=== PATIENT | female | born 1950 | race Caucasian/White ===

== ENCOUNTER 2020-01-19 15:31 | Outpatient (REF) | payer MEDICARE, SELFPAY ==
--- NOTE | 2020-01-19 | MR_ITS ---
EXAMINATION: MR LUMBAR SPINE WITHOUT CONTRAST CLINICAL INFORMATION: Low back and left leg pain. COMPARISON: MRI dated 01/25/2017. TECHNIQUE: MRI of the lumbar spine was obtained using routine sequences without contrast. FINDINGS: VERTEBRAL BODIES AND PARASPINAL STRUCTURES: There is a mild rightward curvature of the lumbar spine. There are new mild anterior subluxations at L3-L4 and L4-L5. There are small endplate Schmorl's nodes at L4-L5 with mild reactive marrow edema. No compression fractures identified. The paraspinal soft tissues are unremarkable. The imaged bony pelvis is normal. CONUS MEDULLARIS AND CAUDA EQUINA: Normal, terminating at the level of L1. No lower cord signal abnormality is seen. The cauda equina nerve roots appear normal. SPINAL LEVELS: L1-L2: No disc pathology. No central canal stenosis or foraminal narrowing. L2-L3: Very mild disc bulge and mild facet arthropathy without central canal stenosis or foraminal narrowing. L3-L4: Left paracentral to left subarticular zone disc protrusion superimposed upon a broad-based posterior disc bulge, worsened when compared to prior imaging. New mild anterolisthesis as well. Moderate facet arthropathy and mild central canal stenosis. Bulging disc mildly impresses upon the traversing L4 nerve roots. Broad-based left foraminal disc protrusion abuts but does not compress the exiting left L3 nerve root. L4-L5: Mild anterolisthesis and unroofing of the disc with a posterior disc bulge and severe facet arthropathy. Additional increased thickening of the ligamentum flavum. New large 1.4 x 0.9 x 0.4 cm synovial cyst protruding from the left facet joint through the ligamentum flavum into the central canal. This cyst results in severe thecal sac compression. Additionally, there is moderate to severe central canal stenosis. Unroofed bulging disc and facet spurring result in [id number] foraminal encroachment. Mild reactive edema in the deep posterior surrounding paraspinal soft tissues as well. L5-S1: Mild disc bulge and moderate to severe facet arthropathy without central canal stenosis or foraminal narrowing. MR/MR lumbar spine wo con IMPRESSION: New mild anterolisthesis at L3-L4 with a left paracentral to subarticular zone disc protrusion. Worsened posterior disc bulge as well impressing upon both L4 nerve roots. Broad-based left foraminal disc protrusion abutting the left L3 nerve root. Mild central canal stenosis. New mild anterior subluxation and unroofing of the disc at L4-L5 with progressed facet arthropathy and thickening of the ligamentum flavum. Findings result in moderate to severe central canal stenosis. New 1.4 x 0.9 x 0.4 cm synovial cyst protruding from the left facet joint into the canal with severe thecal sac compression.
== END 2020-01-19 15:32 | disposition home or self-care (01) ==
LOC: HO.MRI 15:31
PROVIDERS: Visit Provider Internal Medicine Rheumatology
DX: M51.26 Other intervertebral disc displacement, lumbar region (principal)
CPT/HCPCS: 72148

== ENCOUNTER 2020-10-13 11:55 | Outpatient (REF) | payer MEDICARE, SELFPAY ==
--- NOTE | ~2020-10-13 | MM_ITS ---
EXAMINATION: MM SCREENING DIGITAL BREAST TOMOSYNTHESIS, BILATERAL CLINICAL INFORMATION: Screening. Asymptomatic. The lifetime risk of breast cancer based on the Tyrer-Cuzick Model is 4%. COMPARISON: Mammography: 04/21/2019, 08/22/2017, 05/05/2016 TECHNIQUE: Digital breast tomosynthesis is performed in both the craniocaudal and mediolateral oblique views along with computer-aided detection (CAD). Synthesized 2D images are generated from the tomosynthesis. FINDINGS: The breasts are heterogeneously dense, which may obscure small masses (ACR BI-RADS breast composition Category c). There are no significant masses, abnormal calcifications, or other abnormalities. The axilla and skin contours are unremarkable. No significant changes. MM/MM tomosynthesis screening BI IMPRESSION: No mammographic evidence of malignancy. ASSESSMENT: BI-RADS 1: Negative RECOMMENDATION: Routine annual mammography screening. This patient's information was entered into a reminder system with a target due date for their next mammogram.
== END 2020-10-13 11:56 | disposition home or self-care (01) ==
LOC: HO.MAMMO 11:55
PROVIDERS: Visit Provider Student in an Organized Health Care Education/Training Program
DX: Z12.31 Encounter for screening mammogram for malignant neoplasm of breast (principal)
CPT/HCPCS: 77063; 77067

== ENCOUNTER 2021-03-22 15:14 | Outpatient (REF) | payer MEDICARE, SELFPAY ==
--- NOTE | ~2021-03-22 | XR_ITS ---
EXAMINATION: XR FOOT, LEFT CLINICAL INFORMATION: Numbness between the toes. Great toenail is black . COMPARISON: Radiograph of the left foot dated from 03/26/2011. TECHNIQUE: AP, lateral, and oblique views of the left foot. FINDINGS: No evidence of acute fractures or malalignment. Enthesophytes in the posterior surface of the calcaneus. No suspicious cortical disruption or erosions to suspect osteomyelitis. No unexpected radiopaque foreign bodies. There is diffuse soft tissue edema with scattered vascular calcifications. XR/XR foot LT min 3V IMPRESSION: No acute fractures or malalignment. No suspicious findings for osteomyelitis. However, early osteomyelitis is often radiographically occult and if there is concern for infection further evaluation could be obtained with an MR of the foot if indicated.
== END 2021-03-22 15:15 | disposition home or self-care (01) ==
LOC: HO.XRAY 15:14
PROVIDERS: PCP Internal Medicine Endocrinology, Diabetes & Metabolism; Visit Provider Internal Medicine Endocrinology, Diabetes & Metabolism
DX: R20.0 Anesthesia of skin (principal)
CPT/HCPCS: 73630

== ENCOUNTER 2021-05-31 12:25 | Outpatient (REF) | payer MEDICARE, SELFPAY ==
--- NOTE | ~2021-05-31 | XR_ITS ---
EXAMINATION: XR cervical spine 4V CLINICAL INFORMATION: Pain COMPARISON: None TECHNIQUE: 6 views of the cervical spine were obtained. XR/XR cervical spine 4V FINDINGS/IMPRESSION: The cervical spine is visualized to the level of C7 on the lateral view. Vertebral body alignment is maintained. Vertebral body heights are maintained. Lateral masses of C1 are well aligned on C2. Visualized portion of the dens is intact. Moderate degenerative disc disease at C4-C5 through C6-C7, manifested by loss of disc space height and facet arthropathy. Uncovertebral hypertrophy and facet arthropathy results in moderate to severe neural foraminal narrowing on the right at C4-C5 through C6-C7 and in moderate neural foraminal narrowing on the left at C3-C4, C4-C5, and C6-C7. No prevertebral soft tissue swelling.
== END 2021-05-31 12:26 | disposition home or self-care (01) ==
LOC: HO.XRAY 12:25
PROVIDERS: PCP Internal Medicine Endocrinology, Diabetes & Metabolism; Visit Provider Psychiatry & Neurology Neurology
DX: M50.90 Cervical disc disorder, unspecified, unspecified cervical region (principal)
CPT/HCPCS: 72050

== ENCOUNTER 2021-10-24 10:53 | Outpatient (REF) | payer MEDICARE, SELFPAY ==
--- NOTE | ~2021-10-24 | MM_ITS ---
EXAMINATION: MM SCREENING DIGITAL BREAST TOMOSYNTHESIS, BILATERAL CLINICAL INFORMATION: Screening. Asymptomatic. The lifetime risk of breast cancer based on the Tyrer-Cuzick Model is 4%. COMPARISON: Mammography: 10/13/2020, 04/21/2019, 08/22/2017 TECHNIQUE: Digital breast tomosynthesis is performed in both the craniocaudal and mediolateral oblique views along with computer-aided detection (CAD). Synthesized 2D images are generated from the tomosynthesis. FINDINGS: The breasts are heterogeneously dense, which may obscure small masses (ACR BI-RADS breast composition Category c). There are no significant masses, abnormal calcifications, or other abnormalities. Breast tissue composition borders on average fibroglandular. Parenchymal pattern is similar to prior studies. The axilla and skin contours are unremarkable. MM/MM tomosynthesis screening BI IMPRESSION: No mammographic evidence of malignancy. ASSESSMENT: BI-RADS 1: Negative RECOMMENDATION: Routine annual mammography screening. This patient's information was entered into a reminder system with a target due date for their next mammogram.
== END 2021-10-24 10:54 | disposition home or self-care (01) ==
LOC: HO.MAMMO 10:53
PROVIDERS: PCP Student in an Organized Health Care Education/Training Program; Visit Provider Student in an Organized Health Care Education/Training Program
DX: Z12.31 Encounter for screening mammogram for malignant neoplasm of breast (principal)
CPT/HCPCS: 77063; 77067

== ENCOUNTER 2021-12-07 10:59 | Outpatient (REF) | payer MEDICARE, SELFPAY ==
--- NOTE | ~2021-12-07 | MM_ITS ---
EXAMINATION: BONE DENSITOMETRY CLINICAL INDICATION: Age-related osteoporosis without current pathological fracture. COMPARISON: Previous BD dated 10/23/2019 and baseline BD dated 06/03/2015. TECHNIQUE: Using a [employer] DXA System (software version: 13.1) manufactured by [employer], dual-energy x-ray absorptiometry was performed of the lumbar spine and left hip. The images are of good technical quality. Summary results are attached. FINDINGS: AP SPINE L1-L2 (excluding L3 and L4): The data of L1-L4 has been changed to exclude the L3 and L4 vertebral bodies, because degenerative changes at these levels may cause overestimation of lumbar spine density. Current: BMD 0.962 g/cm2, Z-score 0.3, T-score -1.7, osteopenia, 1.7% decrease from previous, 2.3% decrease from baseline (<5% change is not significant). Prior: BMD 0.979 g/cm2. Baseline: BMD 0.985 g/cm2. LEFT FEMUR, NECK: Current: BMD 0.598 g/cm2, Z-score -1.2, T-score -3.2, osteoporosis. Prior: BMD 0.665 g/cm2. Baseline: BMD 0.716 g/cm2. LEFT FEMUR, TOTAL: Current: BMD 0.625 g/cm2, Z-score -1.3, T-score -3.0, osteoporosis, 9.2% decrease from previous, 16.8% decrease from baseline (<5% change is not significant). Prior: BMD 0.688 g/cm2. Baseline: BMD 0.751 g/cm2. IDENTIFIED RISK FACTORS: Menopause, osteoporosis. HISTORY OF FRACTURE: None listed. MEDICATIONS: Vitamin D. MM/XR DEXA axial skeleton IMPRESSION: 1. DIAGNOSIS: Osteoporosis based on the lowest T-score value of -3.2 in the femoral neck applying World Health Organization criteria. 2. 10-YEAR FRACTURE RISK PREDICTION, FRAX: According to the guidelines, FRAX calculation should only be performed on patients in the osteopenia bone density category. Therefore, FRAX was not performed on this patient. 3. Treatment Recommendations: NOF guidelines recommend consideration for treatment in postmenopausal women and men age 50 and older presenting with the following: -A hip or vertebral (clinical or morphometric) fracture. -T-score less than or equal to -2.5 at the femoral neck or spine after appropriate evaluation to exclude secondary causes. -Low bone mass at the hip or spine and a 10-year fracture probability by FRAX of greater than or equal to 3% for hip fracture or greater than or equal to 20% for major osteoporotic fracture based on the [place] adapted WHO algorithm. 4. Other Recommendations: All treatment decisions require clinical judgment and consideration of individual patient factors, including patient preferences, comorbidities, previous drug use, risk factors not captured in the FRAX model (e.g. frailty, falls, vitamin D deficiency, increased bone turnover, interval significant decline in bone density) and possible under or overestimation of fracture risk by FRAX. Additional medical evaluation for secondary cause of low bone mineral density may be appropriate. FUTURE SCAN RECOMMENDATION: People with diagnosed cases of osteoporosis or at high risk for fracture should have regular bone mineral density tests. For patients eligible for Medicare, routine testing is allowed once every 2 years. The testing frequency can be increased to one year for patients who have rapidly progressing disease, those who are receiving or discontinuing medical therapy to restore bone mass, or have additional risk factors.
== END 2021-12-07 11:00 | disposition home or self-care (01) ==
LOC: HO.MAMMO 10:59
PROVIDERS: PCP Student in an Organized Health Care Education/Training Program; Visit Provider Internal Medicine Rheumatology
DX: Z13.820 Encounter for screening for osteoporosis (principal); Z78.0 Asymptomatic menopausal state; M81.0 Age-related osteoporosis without current pathological fracture
CPT/HCPCS: 77080

== ENCOUNTER 2022-03-05 12:06 | Emergency (ER) | payer MEDICARE, SELFPAY ==
--- NOTE | ~2022-03-05 | CT_ITS ---
EXAMINATION: CT HEAD WITHOUT CONTRAST CLINICAL INFORMATION: Head injury, laceration. COMPARISON: CT brain 11/06/2018. TECHNIQUE: Contiguous axial imaging was performed from the skull base to vertex without intravenous administration of contrast. This CT examination was performed using dose optimization techniques as appropriate, variously including the following: *Automated exposure control *Adjustment of mA and/or kV according to patient size (this includes techniques or standardized protocols for targeted exams where dose is matched to indication/reason for exam; i.e. extremities or head) *Use of iterative reconstruction technique DLP: 637 mGy-cm FINDINGS: There is no acute intra-axial, extra-axial bleed, masses or midline shift. There is no acute infarction evolution. There is no edema. There is diffuse periventricular hypodensity in both cerebral hemispheres suggestive of chronic small vessel ischemic changes. The hastings to white matter difference is maintained normal. CT/CT head/brain wo IV con IMPRESSION: 1. No acute intracranial process seen. 2. Chronic small vessel ischemic changes in both cerebral hemispheres. 3. No major change compared to previous study 11/06/2018
[2022-03-05 12:18] VITALS: BP 158/55; PULSE 58; RESP 16; TEMP 36.8; O2SAT 100; BMI 20.5
--- NOTE | 2022-03-05 12:18 | ED_ITS ---
HPI - Wound/Laceration General Chief Complaint: Wound/Laceration <Lilibeth Miranda NP - Last Filed: 03/05/22 12:25> Stated Complaint: scalp lac <Lilibeth Miranda NP - Last Filed: 03/05/22 12:25> Time Seen by Provider: 03/05/22 12:36 <Lilibeth Miranda NP - Last Filed: 03/05/22 12:25> Source: patient and family () <MARIANNA Mauricio - Last Filed: 03/05/22 13:22> Mode of arrival: ambulatory <MARIANNA Mauricio - Last Filed: 03/05/22 13:22> Limitations: no limitations <MARIANNA Mauricio - Last Filed: 03/05/22 13:22> History of Present Illness HPI narrative: Patient is a 71 year old assigned female at with no reported medical history presenting to the emergency department today with a scalp laceration. Patient states that she was shoveling when she caught the top of her head on the underside of her shed. Patient denies any loss of consciousness from the incident. Patient states that she is overdue for a tetanus booster. Patient denies any dizziness, lightheadedness, abdominal pain, nausea, vomiting, fever, chills, blurry vision, double vision, loss of vision, chest pain, difficulty breathing, shortness of breath, back pain, night sweats, pain with urination, increased urinary frequency, increased urinary urgency, blood in her urine or stool, syncope or a near syncopal episode, bowel incontinence, bladder incontinence, bowel retention, bladder retention, or any other complaints at this time. <MARIANNA Mauricio - Last Filed: 03/05/22 13:22> Onset (ago): hour(s) <MARIANNA Mauricio - Last Filed: 03/05/22 13:22> Location: scalp <MARIANNA Mauricio - Last Filed: 03/05/22 13:22> Related Data Home Medications: Previous Rx's Medication Instructions Recorded doxycycline hyclate 100 mg tablet 100 mg PO BID 7 days #14 tabs 03/05/22 <Lilibeth Miranda NP - Last Filed: 03/05/22 12:25> Allergies/Adverse Reactions: Allergies Allergy/AdvReac Type Severity Reaction Status Date / Time penicillin V Allergy Unknown rash Verified 03/05/22 12:18 Penicillins [PENICILLINS] Allergy Unknown RASH Verified 03/05/22 12:18 erythromycin base AdvReac Unknown GI UPSET Verified 03/05/22 12:18 [ERYTHROMYCIN BASE] adhesive Allergy Unknown red smiley Uncoded 03/05/18 00:00 <Lilibeth Miranda NP - Last Filed: 03/05/22 12:25> Review of Systems Constitutional: Constitutional: Reports no additional constitutional compl aints, Denies chills, Denies fever(s) and Denies night sweats <MARIANNA Mauricio - Last Filed: 03/05/22 13:22> Eyes: Eyes: Reports no additional eye complaints, Denies blurry vision, Denies change in vision, Denies diplopia, Denies eye discharge, Denies loss of vision and Denies eye pain <MARIANNA Mauricio - Last Filed: 03/05/22 13:22> ENT: Denies dizziness <MARIANNA Mauricio - Last Filed: 03/05/22 13:22> Comments: scalp laceration <MARIANNA Mauricio - Last Filed: 03/05/22 13:22> Cardiovascular: Cardiovascular: Reports no additional cardiovascular complaints, Denies chest pain, Denies lightheadedness, Denies Loss of Consciousness and Denies dyspnea <MARIANNA Mauricio - Last Filed: 03/05/22 13:22> Respiratory: Respiratory: Reports no additional respiratory complaints and Denies dyspnea <MARIANNA Mauricio - Last Filed: 03/05/22 13:22> Gastrointestinal: Gastrointestinal: Reports no additional gastrointestinal complaints, Denies abdominal pain, Denies melena, Denies hematochezia, Denies change in bowel habits and Denies change in stool character <MARIANNA Mauricio - Last Filed: 03/05/22 13:22> Genitourinary: Genitourinary: Denies hematuria, Denies urinary frequency, Denies dysuria, Denies urinary incontinence, Denies urinary hesitancy and Denies urinary urgency <MARIANNA Mauricio Last Filed: 03/05/22 13:22> Musculoskeletal: Musculoskeletal: Reports no additional musculoskeletal complaints, Denies numbness and Denies tingling <MARIANNA Mauricio - Last Filed: 03/05/22 13:22> Neurologic: Denies dizziness, Denies loss of vision, Denies numbness and Denies tingling <MARIANNA Mauricio - Last Filed: 03/05/22 13:22> Psychiatric: Psychiatric: Reports no additional psychiatric complaints <MARIANNA Mauricio - Last Filed: 03/05/22 13:22> Endocrine: Endocrine: Reports no additional endocrine complaints <MARIANNA Mauricio - Last Filed: 03/05/22 13:22> Hematologic/Lymphatic: Hematologic/Lymphatic: Reports no additional hematologic/lymphatic complaints <MARIANNA Mauricio - Last Filed: 03/05/22 13:22> Allergic/Immunologic: Allergic/Immunologic: Reports no additional allergic/immunologic complaints <MARIANNA Mauricio - Last Filed: 03/05/22 13:22> PMFSH Past Medical History Attestation statement: The following information was validated with the patient. <MARIANNA Mauricio - Last Filed: 03/05/22 13:22> Source: old records reviewed, obtained from family (patient's ) and nursing notes reviewed <MARIANNA Mauricio - Last Filed: 03/05/22 13:22> Social History Social History: Social History Advance Directives: Yes Advance Directives Information Provided: Yes Advance Directives on File: No <Lilibeth Miranda NP - Last Filed: 03/05/22 12:25> Physical Exam Vital Signs: Vital Signs: Last Vital Signs Temp 98.2 F 03/05/22 12:18 Pulse 58 03/05/22 12:18 Resp 16 03/05/22 12:18 BP 158/55 H 03/05/22 12:18 Pulse Ox 100 03/05/22 12:18 O2 Del Method 03/05/22 12:18 BMI result Body Mass Index 20.5 <Lilibeth Miranda NP - Last Filed: 03/05/22 12:25> Vital Signs: Last Vital Signs Temp 98.2 F 03/05/22 12:18 Pulse 58 03/05/22 12:18 Resp 16 03/05/22 12:18 BP 158/55 H 03/05/22 12:18 Pulse Ox 100 03/05/22 12:18 O2 Del Method 03/05/22 12:18 BMI result Body Mass Index 20.5 <MARIANNA Mauricio - Last Filed: 03/05/22 13:22> Const: General: cooperative, no acute distress, alert and awake <Sharla Mcneill PA - Last Filed: 03/05/22 13:22> Nutritional Appearance: well nourished <MARIANNA Mauricio - Last Filed: 03/05/22 13:22> Orientation/consciousness: patient oriented x3 <MARIANNA Mauricio - Last Filed: 03/05/22 13:22> Limitations: no limitations <MARIANNA Mauricio - Last Filed: 03/05/22 13:22> HEENT: Other: small, superficial, laceration to the left side of the frontal scalp, no active bleeding <MARIANNA Mauricio - Last Filed: 03/05/22 13:22> Ears: hearing grossly normal bilaterally and external ears normal <Sharla Mcneill PA - Last Filed: 03/05/22 13:22> General nose exam: Normal external nose present, no nasal discharge noted and no epistaxis <MARIANNA Mauricio - Last Filed: 03/05/22 13:22> Face and sinus: Yes normal facial exam, No abrasion and No laceration <Sharla Mcneill PA - Last Filed: 03/05/22 13:22> Mouth: Normal oral and palatal mucosa present, no drooling and no muffled voice <MARIANNA Mauricio - Last Filed: 03/05/22 13:22> Eyes: General: appearance normal, both eyes and all related structures <Sharla Mcneill PA - Last Filed: 03/05/22 13:22> Periorbital: periorbital findings normal <MARIANNA Mauricio - Last Filed: 03/05/22 13:22> Eyelids: Yes eyelids normal <Sharla Mcneill PA - Last Filed: 03/05/22 13:22> Conjunctivae: conjunctivae normal <MARIANNA Mauricio - Last Filed: 03/05/22 13:22> Pupils: Equal, round and reactive pupils present <Sharla Mcneill PA - Last Filed: 03/05/22 13:22> EOM: EOMs intact bilaterally <Sharla Mcneill PA - Last Filed: 03/05/22 13:22> Neck: Neck: Yes normal visual inspection, Yes full ROM and Yes no lymphadenopathy <Sharla Mcneill PA - Last Filed: 03/05/22 13:22> Chest: Chest palpation & inspection: normal inspection of the chest <Sharla Mcneill PA - Last Filed: 03/05/22 13:22> Resp: Effort & Inspection: normal respiratory effort and able to speak in complete sentences <Sharla Mcneill PA - Last Filed: 03/05/22 13:22> Auscultation: clear to auscultation bilaterally <Sharla Mcneill PA - Last Filed: 03/05/22 13:22> Cardio: Rate: regular rate <Sharla Mcneill PA - Last Filed: 03/05/22 13:22> Rhythm: regular rhythm <Sharla Mcneill PA - Last Filed: 03/05/22 13:22> GI: Inspection: Yes normal to inspection <Sharla Mcneill PA - Last Filed: 03/05/22 13:22> Neuro: General: patient oriented x3 and moves all extremities <Sharla Mcneill PA - Last Filed: 03/05/22 13:22> Cranial nerves: Yes Equal, round and reactive pupils present <Sharla Mcneill PA - Last Filed: 03/05/22 13:22> Cognition (Neuro): normal cognition <Sharla Mcneill PA - Last Filed: 03/05/22 13:22> Motor exam (neuro): 5/5 motor strength present throughout <Sharla Mcneill PA - Last Filed: 03/05/22 13:22> Sensory Exam: Normal double simultaneous stimulation for sensation <Sharla Mcneill PA - Last Filed: 03/05/22 13:22> Coordination: [id number] test normal <Sharla Mcneill PA - Last Filed: 03/05/22 13:22> Extrem: General: Yes normal to inspection, Yes full ROM and Yes capillary refill normal <Sharla Mcneill PA - Last Filed: 03/05/22 13:22> Psych: Appearance: grossly normal <MARIANNA Mauricio - Last Filed: 03/05/22 13:22> Mental Status: mental status grossly normal <MARIANNA Mauricio - Last Filed: 03/05/22 13:22> Affect: normal affect <MARIANNA Mauricio - Last Filed: 03/05/22 13:22> Attitude: cooperative <MARIANNA Mauricio - Last Filed: 03/05/22 13:22> Thought process: Normal thought process present <MARIANNA Mauricio - Last Filed: 03/05/22 13:22> Thought content: Normal thought content present <MARIANNA Mauricio - Last Filed: 03/05/22 13:22> Insight: Good insight present (Psych) <MARIANNA Mauricio - Last Filed: 03/05/22 13:22> Course Course Course Narrative: This is rapid medical exam. Deferred additional HPI, ROS, PE to primary provider. 71yo female healthy here with complaints of head laceration. Patient reports she wwas shoveling and when she stood up she hit her head on the corner of the metal shed. No fall to the ground. No LOC. +mild [facility]. No neck pain. Tetanus status unknown. D/t age will check ct head. Will need tetanus updated, apap for pain and staple placement. VSS <Lilibeth Miranda NP - Last Filed: 03/05/22 12:25> Medications Administered Discontinued Medications Generic Name Dose Route Start Last Admin Trade Name Freq PRN Reason Stop Dose Admin Acetaminophen 975 mg 03/05/22 12:22 03/05/22 12:25 Acetaminophen 325 Mg Tablet PO 03/05/22 12:23 975 mg ONCE ONE Administration Diphtheria/Tetanus/Acell Pertussis 0.5 ml 03/05/22 12:22 03/05/22 12:50 Diphth,Pertus(Acell),Tet Adult 0.5 Ml Syringe IM 03/05/22 12:23 0.5 ml .ONCE ONE Administration <Lilibeth Miranda NP - Last Filed: 03/05/22 12:25> Medications Administered Discontinued Medications Generic Name Dose Route Start Last Admin Trade Name Freq PRN Reason Stop Dose Admin Acetaminophen 975 mg 03/05/22 12:22 03/05/22 12:25 Acetaminophen 325 Mg Tablet PO 03/05/22 12:23 975 mg ONCE ONE Administration Diphtheria/Tetanus/Acell Pertussis 0.5 ml 03/05/22 12:22 03/05/22 12:50 Diphth,Pertus(Acell),Tet Adult 0.5 Ml Syringe IM 03/05/22 12:23 0.5 ml .ONCE ONE Administration <MARIANNA Mauricio Last Filed: 03/05/22 13:22> Medical Decision Making Medical Decision Making MDM Narrative: Patient is a 71 year old assigned female at with no reported medical history presenting to the emergency department today with a scalp laceration. Patient's physical exam showed a small, superficial, laceration to the left side of the frontal scalp with no active bleeding and no gaping areas. Patient's head CT showed no acute process. I explained my physical exam findings as well as all test results to the patient and the patient's . I answered all questions asked by the patient and the patient's . Through shared decision making, the patient, the patient's , and I determined that manual closure of this laceration was not necessary at this time. Patient received an update on tetanus. I stressed the importance of the patient taking her medication as prescribed. I stressed the importance of the patient following up with her primary care provider. I stressed the importance of the patient returning to the emergency department immediately if her symptoms were to worsen or if she were to develop any dizziness, shortness of breath, difficulty breathing, chest pain, blurry vision, loss of vision, nausea, vomiting, abdominal pain, fever, chills, back pain, or any other complaints. Patient and the patient's verbalized agreement and understanding with this treatment plan and discharge. <MARIANNA Mauricio - Last Filed: 03/05/22 13:22> Differential Diagnosis Differential Diagnoses: The differential diagnosis associated with the presentation includes <MARIANNA Mauricio Last Filed: 03/05/22 13:22> laceration <MARIANNA Mauricio Last Filed: 03/05/22 13:22> Radiology Impression Discussion of test interpretation with radiology: I have reviewed the radiologist's reading. <MARIANNA Mauricio Last Filed: 03/05/22 13:22> Radiologist Impression: EXAMINATION: CT HEAD WITHOUT CONTRAST CLINICAL INFORMATION: Head injury, laceration.? COMPARISON: CT brain 11/06/2018. TECHNIQUE: Contiguous axial imaging was performed from the skull base to vertex without intravenous administration of contrast. This CT examination was performed using dose optimization techniques as appropriate, variously including the following: *Automated exposure control *Adjustment of mA and/or kV according to patient size (this includes techniques or standardized protocols for targeted exams where dose is matched to indication/reason for exam; i.e. extremities or head) *Use of iterative reconstruction technique DLP: 637 mGy-cm FINDINGS: There is no acute intra-axial, extra-axial bleed, masses or midline shift. There is no acute infarction evolution. There is no edema. There is diffuse periventricular hypodensity in both cerebral hemispheres suggestive of chronic small vessel ischemic changes. The hastings to white matter difference is maintained normal. ? CT/CT head/brain wo IV con IMPRESSION: 1.? No acute intracranial process seen. 2.? Chronic small vessel ischemic changes in both cerebral hemispheres. 3.? No major change compared to previous study 11/06/2018 Dictated By: Baldomero Kerr MD Signed By: Electronically signed by Baldomero Kerr MD 03/05/22 [id number] <MARIANNA Mauricio - Last Filed: 03/05/22 13:22> Discharge Plan Discharge Clinical Impression: Laceration <Lilibeth Miranda NP - Last Filed: 03/05/22 12:25> Patient Disposition: Home, Self-Care <Lilibeth Miranda NP - Last Filed: 03/05/22 12:25> Instructions: Laceration Without Closure (ED), Head Laceration (ED) <Lilibeth Miranda NP - Last Filed: 03/05/22 12:25> Additional Instructions: Follow up with your primary care provider. Return to the emergency department immediately if your symptoms worsen or if you develop any dizziness, shortness of breath, difficulty breathing, chest pain, blurry vision, loss of vision, nausea, vomiting, abdominal pain, fever, chills, back pain, or any other complaints. <Lilibeth Miranda NP - Last Filed: 03/05/22 12:25> Prescriptions: New doxycycline hyclate 100 mg tablet 100 mg PO BID 7 Days Qty: 14 0RF <Lilibeth Miranda NP - Last Filed: 03/05/22 12:25> [place] [facility] [facility] [place]] (Call to establish and follow up with a primary care provider. If you already have a primary care provider, please follow up with them. ) [facility]Provider Group] (Call to establish and follow up with a primary care provider. If you already have a primary care provider, please follow up with them. ) [facility] [place] [facility] [place]Provider Group] (Call to establish and follow up with a primary care provider. If you already have a primary care provider, please follow up with them. ) <Lilibeth Miranda NP - Last Filed: 03/05/22 12:25> Interventions: ED Discharge Assessment Last Done: 03/05/22 13:20 <Lilibeth Miranda NP - Last Filed: 03/05/22 12:25> Print Language: Icelandic <Lilibeth Miranda NP - Last Filed: 03/05/22 12:25>
[2022-03-05] MEDS: Acetaminophen 325 MG TABLET 975 MG PO (12:25)
[2022-03-05] MEDS: Diphth,Pertus(ACell),Tet Adult 0.5 ML SYRINGE IM (12:50)
== END 2022-03-05 13:20 | disposition home or self-care (01) ==
PROVIDERS: Emergency Provider Emergency Medicine
DX: S01.01XA Laceration without foreign body of scalp, initial encounter (principal); W22.09XA Striking against other stationary object, initial encounter; Y93.H1 Activity, digging, shoveling and raking; Y92.017 Garden or yard in single-family (private) house as the place of occurrence of the external cause; Y99.9 Unspecified external cause status
CPT/HCPCS: 70450; 90471; 90715; 99283; 99284

== ENCOUNTER 2023-02-26 13:10 | Outpatient (REF) | payer MEDICARE, SELFPAY | END 2023-02-26 13:11 | disposition home or self-care (01) | LOC: HO.MAMMO 13:10 | PROVIDERS: PCP Internal Medicine Endocrinology, Diabetes & Metabolism; Visit Provider Student in an Organized Health Care Education/Training Program | DX: Z12.31 Encounter for screening mammogram for malignant neoplasm of breast (principal) | CPT/HCPCS: 77063; 77067 ==

== ENCOUNTER → 2023-02-26 13:15 | Outpatient (BNV) | payer MEDICARE, SELFPAY | PROVIDERS: PCP Internal Medicine Endocrinology, Diabetes & Metabolism; Visit Provider Radiology Diagnostic Radiology | DX: Z12.31 Encounter for screening mammogram for malignant neoplasm of breast (principal) | CPT/HCPCS: 77063; 77067 ==

== ENCOUNTER 2023-09-07 12:27 | Outpatient (AMB) | payer MEDICARE, SELFPAY ==
--- NOTE | 2023-09-07 12:47 | AM.OFFWIN_ITS ---
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 ear-blocked Intake Note: pt is here for left ear blockage Patient Tobacco Use Status: Never used Tobacco Allergies penicillin V Allergy (Unknown, Verified 09/07/23 13:06) rash Penicillins [PENICILLINS] Allergy (Unknown, Verified 09/07/23 13:06) RASH erythromycin base [ERYTHROMYCIN BASE] Adverse Reaction (Unknown, Verified 09/07/23 13:06) GI UPSET adhesive Allergy (Unknown, Uncoded 09/07/23 13:06) red smiley Medication List - Last Reconciled 09/07/23 by Noemi Ortega CNP alendronate 70 mg PO QWEEK amlodipine 2.5 mg PO DAILY atenolol 100 mg PO DAILY celecoxib 100 mg PO BID gabapentin 300 mg PO TID hydrochlorothiazide 12.5 mg PO DAILY losartan 50 mg PO BID meclizine 25 mg PO BID PRN rosuvastatin 5 mg PO DAILY zolpidem 5 mg PO BEDTIME PRN Do you need a note to return to daycare/school/sports/work: No HPI HPI Comments History of Present Illness Details 73-year-old female seen today in walk-in clinic for complaint of f ullness, pressure, pain, and decreased hearing of left ear x 2 days. She denies fever, chills, headache, CP, SOB, dizziness, abdominal pain, nausea, vomiting, changes in bowels or bladder. [facility] Social History Patient Tobacco Use Status: Never used Tobacco Review of Systems Const All systems reviewed & are unremarkable except as noted in HPI and below Physical Exam Vital Signs: Last Vital Signs Temp 98.0 F 09/07/23 12:54 Pulse 78 09/07/23 12:54 BP 130/72 09/07/23 12:54 Pulse Ox 98 09/07/23 12:54 BMI result Body Mass Index 21.6 Const General: healthy appearing, no acute distress and well developed Limitations: no limitations HEENT Head: Yes normal to inspection, Yes normocephalic and Yes atraumatic Ears: TM normal on the right and TM abnormal (moderate cerumen blocking TM ) wth effusion serous and erythematous on the left Face and sinus: Yes sinuses nontender Mouth: moist mucous membranes Resp Effort & Inspection: normal respiratory effort, no cough, no respiratory distress and not tachypneic Auscultation: clear to auscultation bilaterally, no rhonchi and no wheezes Cardio Rate: regular rate Rhythm: regular rhythm Heart sounds: S1 normal heart sound present, S2 normal heart sound present and no murmurs Peripheral pulses: Peripheral pulses 2+ throughout GI Inspection: Yes normal to inspection and No distended Skin General skin exam: no rashes or lesions noted and turgor normal Psych Appearance: well kempt Mental Status: mental status grossly normal Affect: normal affect Assessment & Plan Assessment & Plan (1) Otitis media of left ear: Code(s): H66.92 - Otitis media, unspecified, left ear Qualifiers: Otitis media type: mucoid Chronicity: acute Qualified Code(s): H65.192 - Other acute nonsuppurative otitis media, left ear Plan: 73-year-old female seen in office for complaint of left ear pain, pressure, fullness, and decreased hearing. Physical exam reveals erythematous TM w/ serous effusion. Will treat with doxycycline 100 mg po bid x 7 days, encouraged to take with food to reduce GI upset. She has a scheduled appointment with her ENT provider for cerumen removal in 2 weeks. Instructed to return to office for worsening or unresolved symptoms. Medications: New doxycycline monohydrate 100 mg PO BID 14 caps 0RF 7 days H66.92 - Otitis media, unspecified, left ear Discontinued doxycycline hyclate Discontinued Reason: Patient Completed Course 100 mg PO BID 7 days 14 tabs 0RF Coding Level of Care Code Est Pt Level 2 (55662) Diagnoses Acute mucoid otitis media of left ear H65.192 Otitis media type: mucoid Chronicity: acute
[2023-09-07 12:54] VITALS: BP 130/72; PULSE 78; TEMP 36.7; O2SAT 98; BMI 21.6
== END 2023-09-07 13:18 | disposition home or self-care (01) ==
PROVIDERS: PCP Internal Medicine Endocrinology, Diabetes & Metabolism; Visit Provider Nurse Practitioner Acute Care
DX: H65.192 Other acute nonsuppurative otitis media, left ear (principal)
CPT/HCPCS: 99212

== ENCOUNTER 2023-12-01 12:44 | Outpatient (REF) | payer MEDICARE, SELFPAY ==
--- NOTE | ~2023-12-01 | MR_ITS ---
EXAMINATION: MR LUMBAR SPINE WITHOUT CONTRAST CLINICAL INFORMATION: Lower back pain radiating down bilateral legs and left-sided numbness COMPARISON: MR lumbar spine without contrast 01/19/2020 TECHNIQUE: MRI of the lumbar spine was obtained using routine sequences without contrast. FINDINGS: Mild rightward curvature of the lumbar spine. Trace anterolisthesis of L3 on L4 and stable grade 1 anterolisthesis of L4 on L5. No suspicious marrow signal or focal osseous lesion. New L3 and L4 inferior endplate Schmorl's nodes. New left-sided endplate marrow edema at L3-L4. The vertebral body heights are maintained. Multilevel disc dessication and height loss. The conus medullaris terminates at the level of L1-L2. The distal spinal cord is normal in appearance. The cauda equina nerve roots appear normal. No significant abnormalities of the paraspinal musculature. Limited evaluation of the intra-abdominal structures without significant abnormalities. The abdominal aorta is of normal contour and caliber. SPINAL LEVELS: T12-L1: No significant spinal canal or neural foraminal narrowing L1-L2: No significant spinal canal or neuroforaminal narrowing. L2-L3: Increased size of a shallow disc bulge with superimposed small right subarticular protrusion. Facet arthropathy. No significant spinal canal or neural foraminal narrowing L3-L4: Facet arthropathy. Ligamentum flavum thickening. Increased size of a left eccentric disc bulge. Endplate spurring. Worsening moderate central spinal canal stenosis and bilateral subarticular zone narrowing with likely mass effect on the traversing L4 nerve roots.. Stable mild right and worsening moderate left neural foraminal narrowing. L4-L5: Severe facet arthropathy. Anterolisthesis with posterior disc and covering superimposed disc bulge. Laminectomy changes with interval resolution of a previous left-sided intraspinal synovial cyst compatible with surgical resection. Right-sided predominant ligamentum flavum thickening and/or dorsal epidural scarring. There is improved patency of the central spinal canal with persistent moderate right eccentric central spinal canal stenosis. Bilateral subarticular zone narrowing with likely mass effect on the traversing L5 nerve roots and mild to moderate bilateral neural foraminal narrowing appears stable compared to prior. L5-S1: No significant spinal canal or neuroforaminal narrowing. Severe facet arthropathy, right greater than left, with right facet joint effusion. MR/MR lumbar spine wo con IMPRESSION: 1. At L4-L5, there are postlaminectomy with resolution of a previous left-sided synovial cyst and improved patency of the central spinal canal. There is persistent moderate right eccentric spinal canal stenosis and bilateral subarticular zone narrowing with likely mass effect on the traversing L5 nerve roots as well as mild to moderate bilateral neural foraminal narrowing at this level. 2. At L3-L4, progressive multifactorial degenerative changes contribute to worsening moderate spinal canal stenosis and bilateral subarticular zone narrowing with likely mass effect on the traversing L4 nerve roots and worsening moderate left neural foraminal narrowing. 3. Additional multilevel lumbar spondylosis as described above have not significantly progressed compared to MRI from 01/19/2020. Electronically signed by: Quirino Prather MD 12/18/2023 02:12 PM EDT
== END 2023-12-01 12:45 | disposition home or self-care (01) ==
LOC: HO.MRI 12:44
PROVIDERS: PCP Internal Medicine Endocrinology, Diabetes & Metabolism; Visit Provider Psychiatry & Neurology Neurology
DX: M51.9 Unspecified thoracic, thoracolumbar and lumbosacral intervertebral disc disorder (principal)
CPT/HCPCS: 72148

== ENCOUNTER 2024-05-05 10:43 | Outpatient (REF) | payer MEDICARE, SELFPAY | END 2024-05-05 10:44 | disposition home or self-care (01) | LOC: HO.MAMMO 10:43 | PROVIDERS: PCP Physician Assistant; Visit Provider Student in an Organized Health Care Education/Training Program | DX: Z12.31 Encounter for screening mammogram for malignant neoplasm of breast (principal) | CPT/HCPCS: 77063; 77067 ==

== ENCOUNTER → 2024-05-05 10:45 | Outpatient (BNV) | payer MEDICARE, SELFPAY | PROVIDERS: PCP Physician Assistant; Visit Provider Internal Medicine | DX: Z12.31 Encounter for screening mammogram for malignant neoplasm of breast (principal) | CPT/HCPCS: 77063; 77067 ==

== ENCOUNTER 2024-05-19 16:38 | Outpatient (REF) | payer MEDICARE, SELFPAY ==
--- NOTE | ~2024-05-19 | MR_ITS ---
CLINICAL HISTORY: Cervical radiculopathy Pain in neck, pins and needles in fingers MR cervical spine without gadolinium Comparison: CR/SR - XR CERVICAL SPINE 4V - 05/31/21 12:50 EST MR [place] [id number] - 01/13/15 17:58 EDT Findings: Vertebral alignment is within normal limits. No acute fractures or pathologic bone lesions. There is fluid around the C1-C2 lateral mass joint space on the right displacing the exiting C2 nerve root posteriorly and the right vertebral artery laterally. This is new from 2015. Additional multilevel degenerative changes, overall progressed from 2015: C2-C3: Unremarkable C3-C4: Disc bulge, uncovertebral and facet arthropathy causes mild right and moderate left neural foraminal stenosis. C4-C5: Disc bulge, uncovertebral and facet arthropathy causes mild spinal canal, moderate right and mild left neural foraminal stenosis. C5-C6: Disc bulge, uncovertebral and facet arthropathy causes mild spinal canal and moderate bilateral neural foraminal stenosis. C6-C7: Disc bulge, uncovertebral and facet arthropathy causes mild spinal canal, moderate right and severe left neural foraminal stenosis. C7-T1: Uncovertebral and facet arthropathy causes moderate left neural foraminal stenosis. Visualized intracranial contents are unremarkable. Cervical cord normal size and signal. IMPRESSION: Fluid around the C1-C2 lateral mass joint space on the right displacing the exiting C2 nerve root posteriorly and the right vertebral artery laterally. Multilevel degenerative changes, progressed from 2014 as detailed above. This document has been electronically signed by: Amelie Lind MD on 05/19/2024 18:16:28
--- OUTSIDE RECORDS SUMMARY | 2024-05-19 19:50 | XMS_ITS | Continuity of Care Document ---
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 Onset: Essential hypertension Chad Dawkins M.D. Ons et: 02/13/2022 Hypercholesterolemia Chad Dawkins M.D. Onset : 02/13/2022 Osteoporosis MARIANNA Bolivar Onset: 2023 Hypercalcemia Chad Dawkins M.D. Onset: Paronychia Chad Dawkins M.D. Onset: Cyst of pancreas Chad Dawkins M.D. Onset: Social History Type Date Description Comments Sex Unknown Lives With Spouse ETOH Use Occasionally consumes wine Tobacco Use Start: Unknown Patient has never smoked Smoking Status Reviewed: 03/05/24 Patient has never sm oked Allergies and adverse reactions Active Allergies Criticality Reaction Severity Comments Date Penicillins Unable to assess criticality RASH 02/13/2022 Medications Active Medications SIG Qnty Indications Ordering Provider Date Vitamin B593com (1000 Ut) Capsules 1 by mouth every day Chad Dawkins M.D. 02/13/2022 Meclizine UEH15th Tablets Take twice daily as needed Emiliana Mcgill MD Losartan Vyackzoqz98lm Tablets Take 1 Tablet By Mouth Twice A Day Clarence Guardado Bhmaqnpmxy385qf Capsules Take 1 Capsules By Mouth in Am and 2 hs Norm Kuhn Ihejmgylg507gv Capsules Take One Capsule By Mouth Two Times A Day With Food Norm Kuhn Zolpidem Cxcdssxd1wq Tablets Take half tablet at bedtime as needed Emiliana Mcgill MD Amlodipine Besylate2.5mg Tablets Take 1 tablet every evening Clarence Guardado Uhrzkvqd337ui Tablets Take 1 Tablet By Mouth Every Day Clarence Guardado Mupirocin2% Ointment Apply Am And PM Around And Under Left Great Toenail Until Improved Maida Loomis PA Rosuvastatin Ldrlhei9va Tablets Take 1 Tablet By Mouth Every Day Clarence Guardado Alendronate Jeqbad21lu Tablets Please See Attached For Detailed Directions Norm Kuhn, History Medications Doxycycline Skxnubqgntv362uv Tablets take 1 tablet by mouth twice a day as directed 14tabs Chad Dawkins M.D. 07/11/2023 - 03/05/2024 Vital Signs Date Vital Result Comment 03/05/2024 3:49pm BP Systolic 120 mmHg BP Diastolic 60 mmHg Heart Rate 51 /min Height 64 inches 5'4 Weight 127.00 lb BMI (Body Mass Index) 21.8 kg/m2 Results Test Acquired Date Facility Test Result H/L Range Note Urinalysis, Complete 03/05/2024 [facility] [place] 1.014 1.005-1.030 pH 6.0 5.0-7.5 Urine-Color Yellow Yellow Appearance Clear Clear WBC Esterase Negative Negative Protein Negative Negative/Tra ce Glucose Negative Negative Ketones Negative Negative Occult Blood Negative Negative Bilirubin Negative Negative Urobilinogen,Se m i-Qn 0.2 mg/dL 0.2-1.0 Nitrite, Urine Negative Negative Microscopic Examination See Comment: 1 Microscopic Examination See below: 2 WBC None seen /hpf 0 - 5 RBC None seen /hpf 0 - 2 Epithelial Cell s (non renal) None seen /hpf 0 - 10 Epithelial Cell s (renal) TNP Casts None seen /lpf None seen Cast Type TNP Crystals TNP Crystal Type TNP Mucus Threads TNP Bacteria None seen None seen/Few Yeast TNP Trichomonas TNP Comment TNP Laboratory test finding 08/23/2023 [facility] Calcium 10.4 mg/dL High 8.7-10.3 PTH, Intact 41 pg/mL 15-65 CBC With Differential/P latelet 08/13/2023 [facility] WBC 6.5 x10E3/uL 3.4-10.8 RBC 4.19 x10E6/uL 3.77-5.28 Hemoglobin 13.5 g/dL 11.1-15.9 Hematocrit 40.9 % 34.0-46.6 MCV 98 fL High 79-97 MCH 32.2 pg 26.6-33.0 MCHC 33.0 g/dL 31.5-35.7 RDW 11.8 % 11.7-15.4 Platelets 181 x10E3/uL 150-450 Neutrophils 69 % Not Estab. Lymphs 20 % Not Estab. Monocytes 9 % Not Estab. Eos 1 % Not Estab. Basos 1 % Not Estab. Immature Cells TNP Neutrophils (Absolute) 4.5 x10E3/uL 1.4-7.0 Lymphs (Absolute) 1.3 x10E3/uL 0.7-3.1 Monocytes(Absol u te) 0.6 x10E3/uL 0.1-0.9 Eos (Absolute) 0.0 x10E3/uL 0.0- 0.4 Baso (Absolute) 0.0 x10E3/uL 0.0 -0.2 Immature Granulocytes 0 % Not Estab. Immature Grans (Abs) 0.0 x10E3/uL 0.0-0.1 NRBC TNP Hematology Comments: TNP Comp. Metabloic Panel (14) 08/13/2023 [facility] Glucose 103 mg/dL High 70-99 BUN 16 mg/dL 8-27 Creatinine 0.82 mg/dL 0.57-1.00 eGFR 76 mL/min/1.73 >59 BUN/Creatinine Ratio 20 12-28 Sodium 141 mmol/L 134-144 Potassium 4.9 mmol/L 3.5-5.2 Chloride 101 mmol/L 96-106 Anion Gap 14.0 mmol/L 10.0-18.0 Carbon Dioxide, Total 26 mmol/L 20-29 Calcium 10.6 mg/dL High 8.7-10.3 3 Protein, Total 6.9 g/dL 6.0-8.5 Albumin 4.7 g/dL 3.8-4.8 Globulin, Total 2.2 g/dL 1.5-4.5 A/G Ratio 2.1 1.2-2.2 Bilirubin, Total 0.6 mg/dL 0.0-1 .2 Alkaline Phosphatase 61 IU/L 44-121 Ast (Sgot) 23 IU/L 0-40 Alt (SGPT) 16 IU/L 0-32 1 Microscopic follows if indicated. 2 Microscopic was lily cated and was performed. 3 Verified by repeat analysis Medical Devices Description No Information Available Encounters Type Date Location Provider Dx Diagnosis Office Visit 03/31/2024 9:38a Main Office MARIANNA Bolivar E78.00 Pure hypercholesterolemia, unspecified I10 Essential (primary) hypertension Assessments Date Code Description Provider 03/31/2024 E78.00 Pure hypercholesterolemia, u nspecified MARIANNA Bolivar 03/31/2024 I10 Essential (primary) hyperten holger MARIANNA Bolivar Plan of Treatment Future Appointment(s):* 03/09/2025 2:45 pm - MARIANNA Bolivar at Main Office 03/05/2024 - MARIANNA Bolivar* E78.00 Pure hypercholesterolemia, unspecified * E83.52 Hypercalcemia * I10 Essential (primary) hypertension * M19.90 Osteoarthritis * K86.2 Cyst of pancreas * M81.0 Osteoporosis NOS * G47.00 Insomnia, unspecified Functional Status Description No Information Available Mental Status Description No Information Available Referrals Description No Information Available
--- OUTSIDE RECORDS SUMMARY | 2024-05-19 19:50 | XMS_ITS ---
Author Organization [facility] Address [address] [place] [address] Care Team Providers Care Pump Tester Name Role Phone Mariza RICKETTS, Chda Primary Care Provider Kim West [phone] REASON FOR VISIT Bought Formula #7 Encounters Encounter Location Date Provider Diagnosis [facility] [address] [place] [address] 07/23/2023 Kim Culver Plan Of Treatment No Information Progress Notes * Yessi GERBER MDOB: [birth year] (72 yo F)Acc No.[id number]:07/23/2023 Patient:?Yessi Gerber :1950???Age:72 Y???Sex:Female Address:[address] [place] [address], [address] * true * Date:? Generated for Printi mer/Aditi/eTransmitting on:?05/19/2024 07:50 PM EST
--- OUTSIDE RECORDS SUMMARY | 2024-05-19 19:50 | XMS_ITS | Data Portability ---
Author Organization [place] [facility] Address [address] [address] Care Team Providers Care Associate Professor Of Anthropology Name Role Phone JULIUS GONZALEZ Primary Care Provider [phone] Assessment Encounter Date Assessment Date Assessment LastModified by Organization Details LastModified Time 11/20/2023 11/20/2023 73 year old female presents for bilateral cerumen removal and evaluation of aural fullness. Cerumen removed bilaterally and TMs are normal to inspection without retraction, visible fluid in the middle ear, or signs of infection. Discussed eustachian tube dysfunction in the setting of upper respiratory infection vs TMJ as possible causes of her left aural fullness. As ear exam appears normal, the patient agreed to monitor the fullness sensation. Recommended audiometric testing, but the patient is not interested at this time. She will return for ear cleaning in 6 months. [email or web address] Not available 11/20/2023 10:34:37 05/19/2024 05/19/2024 73-year-old female presents for cerumen removal. Cerumen removed bilaterally. TMs normal to inspection. Follow-up in 8 months. [email or web address] Not available 05/19/2024 10:08:31 Plan of Treatment Reminders Order Date Submit Date Provider Last Modified By Organization Details Last Modified Time Details Appointments Establish ed 15 2024 10:15A M MARIJA EISENBERG PA-C Not available Not available Not available Establish ed 15 2024 09:00A M MARIJA EISENBERG PA-C Not available Not available Not available Lab None recorded. Referral None recorded. Procedures None recorded. Surgeries None recorded. Imaging None recorded. Medication Orders None recorded. Patient TargetsNo targets recorded. Patient InstructionsNo instructions recorded. Reason for Referral None Reported. Results Created Date Observation Date Name Description Value Unit Range Abnormal Flag Note LastModifiedBy Organization Detail LastModifiedTime 11/13/19 24 08/25/2018 imagi ng/di agnos tic resul t No observ ation record ed. [email or web address] Not Available 04:28:25 11/13/19 24 10/28/2018 imagi ng/di agnos tic resul t No observ ation record ed. [email or web address] Not Available 04:28:36 11/13/19 24 08/25/2018 audio gram No observ ation record ed. [email or web address] Not Available 04:29:07 11/13/19 24 10/28/2018 audio gram No observ ation record ed. [email or web address] Not Available 04:29:27 Result Notes None recorded. Problems Name Problem SNOMED Code Status Onset Date Resolution Date Notes Provider Name and Address Organization Details Recorded Time Impacted cerumen in left ear 04303391277 24631 Active 2022 Impacted cerumen, left ear; Note: Date Diagnosed : 10/19/2022 1:28 PM (H61.22) Impacte d cerumen, left ear; Note: Date Diagnosed : 10/07/2015 10:53 AM (H61.22) ; Start Date : 6 Not Available [facility] 4 03:06:18 Otalgia of right ear 5290629709 Active 2018 Otalgia, right ear; Note: Date Diagnosed : 10/28/2018 12:54 PM (H92.01) Not Available [facility] 4 03:06:17 Chronic rhinitis 13719905 Active 2018 Rhinitis (chronic) NOS; Note: Date Diagnosed : 10/28/2018 12:54 PM (J31.0) Not Available [facility] 4 03:06:17 Generaliz ed enlarged lymph nodes 937463131 Active 2018 Lymphaden opathy NOS; Note: Date Diagnosed : 08/25/2018 1:33 PM (R59.1) Not Available [facility] 4 03:06:16 Nasal congestio n 87277828 Active 2015 Nasal congestio n; Note: Date Diagnosed : 10/07/2015 11:01 AM (R09.81) Not Available [facility] 4 03:06:18 Pain of right temporoma ndibular joint 37165049999 990903 Active 2019 Arthralgi a of right temporoma ndibular joint; Note: Date Diagnosed : 04/30/2019 3:10 PM (M26.621) Not Available [facility] 4 03:06:17 Bilateral tinnitus 87953370470 02 Active 2018 Tinnitus, bilateral ; Note: Date Diagnosed : 08/25/2018 11:56 AM (H93.13) Not Available [facility] 4 03:06:18 Impacted cerumen of bilateral ears 28407421888 82514 Active 2016 Impacted cerumen, bilateral ; Note: Date Diagnosed : 08/30/2016 10:56 AM (H61.23) Not Available [facility] 4 03:06:17 Abnormal auditory perceptio n 91122279 Active 2018 Other abnormal auditory perceptio ns, right ear; Note: Date Diagnosed : 08/25/2018 11:56 AM (H93.291) Not Available [facility] 4 03:06:16 Tinnitus of left ear 93839668657 06 Active 2015 Tinnitus, left ear; Note: Date Diagnosed : 10/07/2015 11:01 AM (H93.12) Not Available [facility] 4 03:06:16 Neck pain 68406384 Active 2018 Cervicalg ia; Note: Date Diagnosed : 10/28/2018 1:03 PM (M54.2) Not Available [facility] 4 03:06:18 Problem Notes None recorded. Procedures Surgical History Date Name Laterality Status Provider Name and Address Organization Details Recorded Time 5 Cerumen removal without microscope bilat completed MARIJA EISENBERG PA-C [address] [place] [address],[place] [address], [place], [address], [facility] 05/19/2024 10:08:18 4 Cerumen removal without microscope bilat completed MAYRA FORTUNE PA-C [address] [place] [address], [address], [facility] 11/20/2023 10:19:41 Imaging Results Imaging Date Name Status LastModified by [facility] Details LastModified Time 08/25/2018 imaging/diagno stic result completed Information not available 11/13/2023 04:28:25 10/28/2018 imaging/diagno stic result completed Information not available 11/13/2023 04:28:36 08/25/2018 audiogram completed Information not available 11/13/2023 04:29:07 10/28/2018 audiogram completed Information not available 11/13/2023 04:29:27 Procedure Notes None recorded. Medical Equipment None Reported. Allergies Allergen ID Allergen Name Allergen Category Reaction Reaction Severity Criticality Documentation Date Start Date Code Code System Note Provider Name and Address Organization Details Recorded Time 961726 penicilli n V potassium medicatio n other Not available Not available 08/06/2023 97225 5 RxNorm React ion: unkno wn, unspe cifie d;; Not Available [facility] 4 01:25:37 103223 erythromy rodrick ethylsucc inate medicatio n other Not available Not available 08/06/2023 4056 RxNorm React ion: unkno wn, unspe cifie d;; Not Available [facility] 4 01:25:37 Medications Name Sig Start Date Stop Date Status Note LastModified by Organization Details LastModified Time losartan 50 mg tablet TAKE 1 TABLET BY MOUTH TWICE A DAY active Not Available Not Available No t Available celecoxib 200 mg capsule 01/20 completed Medicati on ID: [id number] D uration Value: 90 Brand Name: celecoxi b Send Method: E-Prescr ibed Sub s Allowed: subs OK Medic ationGen ericName : celecoxi b Not Available Not Available Not Available Colace 100 mg capsule 01/20 completed Medicati on ID: [id number] B rand Name: Colace S end Method: E-Prescr ibed Sub s Allowed: subs OK Medic ationGen ericName : Colace Not Available Not Available Not Available atenolol 100 mg tablet TAKE 1 TABLET BY MOUTH 1 TIME EACH DAY. active Not Available Not Available No t Available alendrona te 70 mg tablet TAKE 1 TAB BY MOUTH ONCE WEEKLY WITH GLASS OF WATER. REMAIN UPRIGHT. NO FOOD/DRI NKS/MEDS FOR 30 MIN active Not Available Not Available No t Available amlodipin e 2.5 mg tablet TAKE 1 TABLET BY MOUTH 1 TIME EACH DAY. active Not Available Not Available No t Available doxycycli ne monohydra te 100 mg tablet TAKE 1 TABLET BY MOUTH TWICE A DAY DIRECTED active Not Available Not Available No t Available meclizine 25 mg tablet TAKE 1 TABLET BY MOUTH TWICE A DAY NEEDED FOR 30 DAYS active Not Available Not Available No t Available doxycycli ne monohydra te 100 mg capsule TAKE 1 CAPSULE BY MOUTH TWICE A DAY FOR 7 DAYS active Not Available Not Available No t Available hydrochlo rothiazid e 12.5 mg capsule TAKE 1 CAPSULE BY MOUTH EVERY DAY active Not Available Not Available No t Available gabapenti n 300 mg capsule TAKE 1 CAPSULE BY MOUTH ONCE A DAY & TAKE 2 CAPSULES AT BEDTIME active Not Available Not Available No t Available mupirocin 2 % topical ointment APPLY AM AND PM LEFT GREAT TOENAIL active Not Available Not Available No t Available zolpidem 5 mg tablet TAKE 1 TABLET BY MOUTH AT BEDTIME FOR 90 DAYS active Not Available Not Available No t Available methylpre dnisolone 4 mg tablets in a dose pack active Medicati on ID: [id number] B rand Name: methylpr ednisolo ne Send Method: E-Prescr ibed Sub s Allowed: subs OK [facility]pr ednisolo ne Not Available Not Available Not Available celecoxib 100 mg capsule TAKE ONE CAPSULE BY MOUTH TWICE A DAY WITH FOOD active Not Available Not Available No t Available magnesium 30 mg tablet 01/20 completed Medicati on ID: [id number] B rand Name: magnesiu m Send Method: E-Prescr ibed Sub s Allowed: subs OK Medic ationGen ericName : magnesiu m Not Available Not Available Not Available rosuvasta tin 5 mg tablet TAKE 1 TABLET BY MOUTH 1 TIME EACH DAY. active Not Available Not Available No t Available rosuvasta tin 10 mg tablet active Medicati on ID: [id number] B rand Name: rosuvast atin Sen d Method: E-Prescr ibed Sub s Allowed: subs OK Medic ationGen ericName : rosuvast atin Not Available Not Available Not Available omeprazol e magnesium 20 mg capsule,d elayed release 01/20 completed Medicati on ID: [id number] B rand Name: omeprazo jeannette antoniou m Send Method: E-Prescr ibed Sub s Allowed: subs OK Medic ationGen ericName : omeprazo le brinaesiu m Not Available Not Available Not Available [facility] 180 mg tablet Take 1 tablet by mouth once a day 01/20 completed Medicati on ID: [id number] D uration Value: 30 Brand Name: [facility] Send Method: E-Prescr ibed Sub s Allowed: subs OK Medic ationGen ericName : [facility] Not Available Not Available Not Available Flonase Allergy Relief 50 mcg/actua tion nasal spray,ryan pension 2 puff into both nostrils once a day 01/20 completed Medicati on ID: [id number] D uration Value: 120 Brand Name: Flonase Allergy Relief S end Method: E-Prescr ibed Sub s Allowed: subs OK Medic ationGen ericName : Flonase Allergy Relief Not Available Not Available Not Available Probiotic (B. coagulans ) 10 billion cell capsule,d elayed release 01/20 completed Medicati on ID: [id number] B rand Name: Probioti c (B. coagulan s) Send Method: E-Prescr ibed Sub s Allowed: subs OK Medic ationGen ericName : Probioti c (B. coagulan s) Not Available Not Available Not Available Vitals Date Recorded Body height Body mass index (BMI) Body weight Provider Name and Address Organization Details Last Updated DateTime 11/20/2023 162.56 cm 20.6 kg/m2 05564.08 g Cr Farnsworth [place] [facility] 11/20/2023 09:10:39 Date Recorded Body height Body mass index (BMI) Body weight Provider Name and Address Organization Details Last Updated DateTime 05/19/2024 162.56 cm 21.1 kg/m2 78379.86 g Yessi Bowman [place] [facility] 05/19/2024 09:59:39 Social History None recorded. Functional Status None recorded. Mental Status None recorded. Family History Nothing Reported. Medical History No medical history recorded. Gynecological HistoryNo gynecological history recorded. Obstetrics History GPAL:G 0 P 0 0 0 0 Past Encounters Encounter ID Performer Location Encounter Start Date Encounter Closed Date Diagnosis/Indication Diagnosis SNOMED-CT Code Diagnosis ICD10 Code Diagnosis Note [id number] KASH OLIVEIRA MD [facility] [address] [address] 11/20/2023 08:58:00 11/20/2023 10:08:33 Impacted cerumen of bilateral ears 7076327498 897540 H61.23 Pain of ri ght temporomandibular joint 4204155712 2538054 M26.621 [id number] SMITA PETERSEN MD [facility] [address] [address] 05/19/2024 09:53:11 05/19/2024 10:07:03 Impacted cerumen of bilateral ears 0267859281 633378 H61.23 Health Concerns Section Related Observation LastModified by Organization Detai ls LastModified Time None Recorded Concern Status LastModified by Organization Details LastModified Time None Recorded Advance Directives Directive None Recorded Payers Encounter Date Sequence Insurance Name Policy Number Policy Aguirre Covered Member ID Aguirre Member ID Guarantor Name 11/20/2023 1 [place] [employer] Yessi Morin [id number] Yessi Morin 11/20/2023 2 [place] [id number] Yessi Morin [id number] Yessi Morin 05/19/2024 1 [place] Yessi Morin [id number] Yessi Morin 05/19/2024 2 [place] [id number] Yessi Morin [id number] Yessi Morin Notes Date Note Type Note Provider Name and Address Organization Details Recorded Time 11/20/2023 text/html 73 year old marge machado presents for bilateral cerumen removal. She reports daily ear fullness primarily on her left side for two months. She went to a walk in clinic for evaluation at the time and was told her left ear was impacted with cerumen and was red. She was put on Doxycycline for suspected otitis externa. She wonders if she should start another antibiotic. She does report recent URI and history of TMJ. Denies ear pain, drainage, or hearing changes. Her tinnitus is stable. KASH HUTTON MD [address] [place] [address], [phone], [facility] 11/20/2023 12:54:40 05/19/2024 text/html 73-year-old marge machado presents for cerumen removal. No acute issues since last visit. SMITA PETERSEN MD [address] [place] [address], [place], [address], [facility] 05/19/2024 14:17:28 OBGyn Episode No OBEpisode recorded.
--- OUTSIDE RECORDS SUMMARY | 2024-05-19 19:50 | XMS_ITS ---
[facility] Address [address] [place] [address] Care Team Providers Care Curriculum Counselor Name Role Phone Mariza RICKETTS, Chad Primary Care Provider Raf Culver Kim Unavailable [phone] Kayleigh Lula Unavailable [phone] Allergies Allergen (clinical drug ingredient) Drug/Non Drug Allergy documented on EMR Reaction Allergy Type Onset Date Status erythromycin Erythromycin stomach upset Drug Allergy Active Penicillin rash Drug Allergy Active REASON FOR VISIT Pcp- 07/12/23, Fungal Nails Medications Medication SIG (Take, Route, Frequency, Duration) Notes Start Date End Date Status Zolpidem Tartrate 5 MG 1 tablet at bedti me as needed Orally Once a day Active Losartan Potassium 50 MG 1 tablet Orally twice a day Active amLODIPine Besylate 2.5 MG 1 tablet Oral ly Once a day Active Meclizine HCl 25 MG as directed Orally PRN Active Rosuvastatin Calcium 5 MG 1 tablet Orall y Once a day Active Vitamin D 25 MCG (1000 UT) as directed Orally Active Celecoxib 100 MG 1 capsule with food Orally Twice a day Active Atenolol 100 MG 1 tablet Orally Once a day Active Alendronate Sodium 70 MG 1 tablet 30 min utes before the first food, beverage or medicine of the day with plain water Orally for 30 day(s) Active hydroCHLOROthiazide 12.5 MG 1 capsule in the morning Orally Once a day for 30 day(s) Active Gabapentin 300 MG as directed Orally t wice a day Active Social History Tobacco Use: Social History Observation Description Date Details (start date - stop date) Never Smoker NA - NA Tobacco Use/Smoking Question Answer Notes Are you a: nonsmoker Additional Findings: Tobacco Non-User Aggressive non-smoker Alcohol Screen Question Answer Notes Did you have a drink contain ing alcohol in the past year? Yes How often did you have a dri nk containing alcohol in the past year? Monthly or less (1 point) How many drinks did you have on a typical day when you were drinking in the past year? 1 or 2 drinks (0 point) Points 1 Interpretation Negative Tobacco use other than smoking: Question Answer Notes Are you an other tobacco user? No Vital Signs Height 5 ft 4 in in 07/23/2023 Weight 125 lbs 07/23/2023 BMI 21.45 kg/m2 07/23/2023 Blood pressure systolic 126 mm Hg 07/23/19 24 Blood pressure diastolic 72 mm Hg 024 Encounters Encounter Location Date Provider Diagnosis [facility] [address] [address] 07/23/2023 Lula Victor Contusion of left great toe with damage to nail, initial encounter S90.212A ; Neuropathy G62.9 and Subungual hematoma of toe of left foot, initial encounter S90.222A Assessments Encounter Date Diagnosis (ICD Code) Assessment Notes Treatment Notes Treatment Clinical Notes Section Notes 07/23/2023 Contusion of left great toe with damage to nail, initial encounter (ICD-10 - S90.212A) 07/23/2023 Neuropathy (ICD-10 - G62.9) 07/23/2023 Subungual hematoma of toe of left foot, initial encounter (ICD-10 - S90.222A) Plan Of Treatment Next Appt Details Follow Up: prn, Reason: Progress Notes * Yessi GERBER MDOB: [birth year] (72 yo F)Acc No.[id number]:07/23/2023 Progress Note Patient:?Yessi Gerber Provider:?Lula Victor DPM :1950???Age:72 Y???Sex:Female D ate:07/23/2023 Address:[address] [place], [place] [id number] Pcp:Chad Dawkins MD Subjective: * Chief Complaints: * ???Pcp- 04/19/24 Fungal Nail s * HPI: ???Painful Nails:?Nature:?discolored tender.?Location:?Great toe Left foot.?Duration:?3 weeks.?Onset/Cause:?unknown-does not relate a specific injury that she knows, but 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 * ROS:?General/Constitutional:?Nausea?denies, denies.?Vomiting?denies, denies.?Hunger Thirst?denies, denies.?Loss appetite?denies, denies.?Chills?denies, denies.?Fatigue?denies, denies.?Fever?denies, denies.?Night Sweats denies, denies.?Unexplained weight loss?denies, denies.?Unexplained weight gain?denies, denies.?HEENTM:?Dentures?denies, denies.?Dizziness?admits, admits.?Glasses/contacts?admits, admits.?Retinopathy?denies, denies.?Blurred/double vision?denies, denies.?TMJ?denies, denies.?Discharge/drainage?denies, denies.?Implants?denies, denies.?Sore throat?denies, denies.?Dental implants?denies, denies.?Hard of hearing ?denies, denies.?Difficulty chewing/swallowing/speaking?denies, denies.?Nose bleeds?denies, denies.?Sore mouth?denies, denies.?Respiratory:?On Oxygen?denies, denies.?Pneumonia/pleurisy?denies, denies.?Bronchitis?denies, denies.?Emphysema?denies, denies.?Coughing?denies, denies.?Cough blood?denies, denies.?Shortness of breath?denies, denies.?Wheezing?denies, denies.?Cardiovascular:?Pacemaker?denies, denies.?MVP?denies, denies.?WPW?denies, denies.?CHF?denies, denies.?Heart attack?denies, denies.?Septal defect?denies, denies.?Rapid beat?denies, denies.?Chest pain ?denies, denies.?Atrial Fib.?denies, denies.?Murmur/Palpitations?admits, admits.?Gastrointestinal:?Hemorrhoids?denies, denies.?Stomach/Abdominal pain?denies, denies.?Dark blood stool?denies, denies.?Irritable bowel ?denies, denies.?Constipation?denies, denies.?Diarrhea?denies, denies.?Hematology:?Swelling?denies, denies.?Clots?denies, denies.?Varicose Veins?denies, denies.?Bruising?denies, denies.?Bleeding problem?denies, denies.?Genitourinary:?Blood urine?denies, denies.?Frequent/Painfu/urination/bladder control?denies, denies.?Kidney stones?denies, denies.?Infection (UTI)?denies, denies.?Nephropathy?denies, denies.?sex trans dis (STD)?denies, denies.?Prostate?denies, denies.?Musculoskeletal:?Hammertoes?denies, denies.?Bunions?denies, denies.?Back Pain?admits, admits.?Muscle Cramps/ Resting?admits, admits.?Muscle cramps / walking?denies, denies.?Generalized aches and pains?admits, denies.?Weakness?denies, denies.?Integ.:?Lam?denies, denies.?Scars?denies, denies.?Corns/calluses?denies, denies.?Ingrown nails?denies, denies.?Painful nails?denies, denies.?Open Sores?denies, denies.?Rashes?denies, denies.?Neurologic:?Difficulty sleeping?denies, denies.?Brain disorder?denies, denies.?Numbness?admits, admits.?Balance trouble?denies, denies.?Confusion?denies, denies.?Fainting/blackouts?denies, denies.?Tingling?admits, admits.?Tremors?denies, denies.? * Medical History:? * Surgical History:?laminectom y, left partial , resection left synovial cyst cholecystectomy ppendectomy 09/16/2011pancreatectomy 08/1999Spinal Surgery - Sinovial cyst L4-L5 02/2020 * Hospitalization/Major Diagno stic Procedure:?Denies Past Hospitalization * Family History:?Mother: dece ased, arthritis, stroke, cancer, high blood pressure.?Father: , stroke, cancer, high blood pressure.? * Social History:?Tobacco Use:?Tobacco Use/Smoking?Are you a:?nonsmoker ?Additional Findings: Tobacco Non-User?Aggressive non-smoker ?Tobacco use other than smoking?Are you an other tobacco user??No ???Drugs/Alcohol:?Drugs?Have you used drugs other than those for medical reasons in the past 12 months??No ?Alcohol Screen?Did you have a drink containing alcohol in the past year??Yes ?How often did you have a drink containing alcohol in the past year??Monthly or less (1 point) ?How many drinks did you have on a typical day when you were drinking in the past year??1 or 2 drinks (0 point) ?Points?1 ?Interpretation?Negative ???Miscellaneous:?Caffeine: yes, frequency:, 1-2 cups per day. ?no Children. ?Exercise: yes, walking. ?Marital status: . 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 * Medications:?TakingAlendrona te Sodium 70 MG Tablet 1 tablet 30 minutes before the first food, beverage or medicine of the day with plain water Orally hydroCHLOROthiazide 12.5 MG Capsule 1 capsule in the morning Orally Once a dayamLODIPine Besylate 2.5 MG Tablet 1 tablet Orally Once a dayMeclizine HCl 25 MG Capsule as directed Orally , Notes: PRNRosuvastatin Calcium 5 MG Tablet 1 tablet Orally Once a dayZolpidem Tartrate 5 MG Tablet 1 tablet at bedtime as needed Orally Once a dayLosartan Potassium 50 MG Tablet 1 tablet Orally twice a dayGabapentin 300 MG Capsule as directed Orally twice a dayVitamin D 25 MCG (1000 UT) Tablet as directed Orally Celecoxib 100 MG Capsule 1 capsule with food Orally Twice a dayAtenolol 100 MG Tablet 1 tablet Orally Once a dayMedication List reviewed and reconciled with the patientTaking Alendronate Sodium 70 MG Tablet 1 tablet 30 minutes before the first food, beverage or medicine of the day with plain water Orally Taking hydroCHLOROthiazide 12.5 MG Capsule 1 capsule in the morning Orally Once a dayTaking amLODIPine Besylate 2.5 MG Tablet 1 tablet Orally Once a dayTaking Meclizine HCl 25 MG Capsule as directed Orally , Notes: PRNTaking Rosuvastatin Calcium 5 MG Tablet 1 tablet Orally Once a dayTaking Zolpidem Tartrate 5 MG Tablet 1 tablet at bedtime as needed Orally Once a dayTaking Losartan Potassium 50 MG Tablet 1 tablet Orally twice a dayTaking Gabapentin 300 MG Capsule as directed Orally twice a dayTaking Vitamin D 25 MCG (1000 UT) Tablet as directed Orally Taking Celecoxib 100 MG Capsule 1 capsule with food Orally Twice a dayTaking Atenolol 100 MG Tablet 1 tablet Orally Once a dayMedication List reviewed and reconciled with the patient * Allergies:?Penicillin: rashE rythromycin: stomach upsetyes[Allergies Verified] Objective: * Vitals:?Ht: 5 ft 4 in, Wt:12 5, BMI:21.45, Shoe size:7.5-8, BP:126/72 mm Hg. * Examination: ???Nails: ?NAILS are:?There is evidence of? minimal pain on palpation, and an area of subungual hemorrhagic fluid TA; no signs of infection, no active drainage, nail plate intact.?Vascular: ?DP PULSES:?3/4, B/L.?PT PULSES:?3/4, B/L.?CAPILLARY FILL TIME:?immediate, all digits, B/L.?SKIN TEMPERTURE GRADIENT OF THE LOWER EXTERMITIES:?normal, warm to cool, proximal to distal, B/L, B/L.?HAIR GROWTH/TEXTURE/ELASTICITY/TURGOR:?normal, B/L.?PIGMENTATION:?normal, B/L.?EDEMA:?absent, B/L.?Dermatologic: ?SKIN FINDINGS:?Skin exam reveals normal color, texture, elasticity, and turgor. There are no masses, nor excrescences. The interspaces are clear, B/L.?Orthopedic: ?MUSCLE STRENGTH:?5/5 all groups in a symmetrical fashion , B/L.?DIGITAL DEFORMITIES:?Mild pain on palpation TA.?Neurological: ?SENSORY:?Pt relates anesthesia Forefoot B/L , Neurological exam demonstrates , reduced light touch sensation , at Forefoot.?General Examination: ?GENERAL APPEARANCE:?Reveals a pleasant, alert, well nourished, well developed, well hydrated individual, who demonstrates proper attention to hygene/body habitus, and is in no acute distress.?ORIENTED:?person, place, and time.?X-Rays - IMAGING REPORT: ?Views:?Pt Defers X-Rays.? Assessment: * Assessment: 1.?Contusion of left great t oe with damage to nail, initial encounter - S90.212A?2.?Neuropathy - G62.9?3.?Subungual hematoma of toe of left foot, initial encounter - S90.222A, Acute problem, Complicated w/ Multiple Tx Options(4)? Plan: * Treatment: * Procedure Codes:? * Preventive Medicine:? ??Counseling:?Discussion:?-14: Office or other outpatient visit for the evaluation and management of an established patient, which required a medically appropriate history and/or examination and MODERATE level of DECISION MAKING for: 1 OR MORE CHRONIC PROBLEM(S) THATS WORSENING, 2 STABLE CHRONIC PROBLEMS, A NEWLY DIAGNOSED PROBLEM WITH UNCERTAIN PROGNOSIS, AN ACUTE COMPLICATED INJURY WITH MULTIPLE TREATMENT OPTIONS, OR AN ACUTE PROBLEM WITH ACCOMPANYING SYSTEMIC SYMPTOMS, THAT POSE(S) A MODERATE RISK OF MORBIDITY. THIS CONDITION MAY ALSO INCLUDE RX DRUG MANAGEMENT, OR A DECISON FOR MINOR SURGERY. The visit on the day of the encounter encompassed interpreting the data and educating the patient as to the nature of their condition, treatment options available according to their individual PMH, meds, allergies, and overall health/living conditions, as well as any potential risks or complications that may occur from a failure to adhere to, and participate in, the recommended course of therapy. The discussion included a complete verbal, and/or written explanation of the examination results, any x-rays taken, the proposed diagnosis, and outline of the treatment plan. A schedule for future care needs was also explained. The patient verbalized an understanding of the instructions at this time and agreed to be an active participant in their treatment. If the patient should think of any questions or concerns after the visit, I have encouraged the patient to call the office.?BioMech.:?I discussed the Pts foot biomechanics with them and how it relates to their problem.?Fungal Nail Counseling:?The Pt. was counseled on the diagnosis, potential etiologies (including, but not limited to, environmental factors, genetic, immune deficiency), and the multiple treatment options for Onychomycosis. We discussed the risks and benefits of each option from performing no treatment, to ultraviolet light shoe treatment, to laser nail treatment, to applying topical antifungals, to taking oral antifungal medication, to surgical removal of the involved nail(s) with or without performing a matricectomy, or any combination thereof. We discussed the advantages and disadvantages of each of possible treatment and importance for adherence to all the recommended therapies for optimum success. This includes the necessity for weekly emery board self nail home debridements, and control the nail & skin environment as much as possible by only using a fresh, dry pair of shoes/socks each day, as well as keeping the skin as dry as possible through the use of sprays/powders if necessary. Pt was instructed to discard the dona board after use to prevent reinfectoin of the involved nail(s). We discussed the mycological and visual clinical effectiveness of topical vs oral antifungal treatments as well as each ones' potential side effects and/or brayan patient-specific medication interactions. We discussed the reasons behind the important requirement of regular liver function testing with oral antifungal therapy for safety. Patient questions re: use, dosage, successful outcomes, blood tests, and possible pharmacutical interactions were reviewed and the patient verbalized that all answers were clearly understood, The Pt prefers topical treatment , Formula #7 was dispensed with instructions for use.?Neuritis/Neuropathy:?The Pt. was counseled on the diagnosis, possible etiologies (including mechanical stress, injury, entrapment, chemotherapy, diabetes, vertebral disk herniation if hx), treatment options, and importance for adherence to recommendations in order to address the patient's Neuritis/Neuropathy. The advantages and disadvantages re: Accomidative mechanical support/offloading, Topical vs PO analgesics including aspercream/Voltaren gel/Lidoderm patches/Neurontin/Lyrica along with their potential side effects were discussed with the patient to their satisfaction. Also discussed the use of therapeutic injectable cortisone if needed. Surgical treatment, if considered an option, was discussed as well. If surgery is warranted, we discussed the potential successful outcomes as well as the possible complications such as failure, painful scar, permanent tingling/numbness/neuralgea/or intractable pain. Patient questions re: medication use, dosage, and possible side effects and drug interactions were reviewed and the answers to each understood. If the condition worsens, the patient was instructed to contact the office for an appointment. The patient verbally confirmed a full understanding of the above, Discussed that neruopathy could be related to back arthritis/injury, recommend follow up with PCP.?Podiatric Surgery Counseling:?Discussed removal or draining of toenail, pt defers and wishes to monitor nail. Pt aware nail may auto avulse. Discussed how pt's foot biomechanics and neuropathy and work contribute to nail trauma.?Shoe Gear Counseling:?The patient and I reviewed the types of shoes they should be wearing. My recommendation included obtaining a well-fitted shoe with a good supportive, non-foldable nor twistable sole, plenty of toe/room for the forefoot, and proper arch support. Based on todays examination, I recommended the patient look for new shoes, by having their feet professionally measured. We discussed that generally the best time of the day for a shoe fitting is the afternoon. Different shoes types and brands to best match the patients occupation and vocation were discussed. Specific brand selection will be up to the patient, their individual foot condition/deformities, and fit. The patient and I reviewed the standard new shoe break in period by wearing them for a few hours a day while checking for redness or sores as wear time is increased. The patient verbally confirmed to understanding the information discussed.? * Follow Up:?prn * Images: * Sign off status: Completed true * Provider:?Lula Victor DPM Date:? 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 There are no masses, nor excrescences. The interspaces are clear, B/L Orthopedic DIGITAL DEFORMITIES: Mild pain on palpati on TA MUSCLE STRENGTH: 5/5 all groups in a symmetrical fashion , B/L General Examination GENERAL APPEARANCE: Reveals a pleasant, alert, well nourished, well developed, well hydrated individual, who demonstrates proper attention to hygene/body habitus, and is in no acute distress ORIENTED: person, place, and t gayathri Vascular DP PULSES (B): 3/4, B/L PT PULSES (B): 3/4, B/L CAPILLARY FILL TIME: immediate, all digi ts, B/L TEMPERTURE GRADIENT (C): normal, warm to cool, proximal to distal, B/L, B/L TROPHIC CONDITION-TEXTURE/ELASTICITY/TURGOR/HAIR GROWTH (B): normal, B/L EDEMA (C): absent, B/L PIGMENTATION: normal, B/L Nails NAILS are: There is evidenc e of minimal pain on palpation, and an area of subungual hemorrhagic fluid TA; no signs of infection, no active drainage, nail plate intact X-Rays - IMAGING REPORT Views: Pt Defers X-Rays
--- OUTSIDE RECORDS SUMMARY | 2024-05-19 19:50 | XMS_ITS | Continuity of Care Document ---
Author Organization [place] - [facility], [facility] Address [address] [place] [address] Care Team Providers Care Campaign Worker Name Role Phone JULIUS GONZALEZ Primary Care Provider [phone] Assessment Encounter Date Assessment Date Assessment LastModified by Organization Details LastModified Time 05/19/2024 05/19/2024 73-year-old female presents for cerumen [...] instructions recorded. Reason for Referral None Reported. Problems Name Problem SNOMED Code Status Onset Date Resolution Date Notes Provider Name and Address Organization Details Recorded Time Impacted cerumen in left ear 61898185786 36916 Active 2022 Impacted cerumen, left ear; Note: Date Diagnosed : 10/19/2022 1:28 PM (H61.22) Impacte d cerumen, left ear; Note: Date Diagnosed : 10/07/2015 10:53 AM (H61.22) ; Start Date : 6 Not Available [facility] 4 03:06:18 Otalgia of right ear 6987204844 Active 2018 Otalgia, right ear; Note: Date Diagnosed : 10/28/2018 12:54 PM (H92.01) Not Available [facility] 4 03:06:17 Chronic rhinitis 97875459 Active 2018 Rhinitis (chronic) NOS; Note: Date Diagnosed : 10/28/2018 12:54 PM (J31.0) Not Available [facility] 4 03:06:17 Generaliz ed enlarged lymph nodes 805740732 Active 2018 Lymphaden opathy NOS; Note: Date Diagnosed : 08/25/2018 1:33 PM (R59.1) Not Available [facility] 4 03:06:16 Nasal congestio n 18953921 Active 2015 Nasal congestio n; Note: Date Diagnosed : 10/07/2015 11:01 AM (R09.81) Not Available [facility] 4 03:06:18 Pain of right temporoma ndibular joint 81705958760 278757 Active 2019 Arthralgi a of right temporoma ndibular joint; Note: Date Diagnosed : 04/30/2019 3:10 PM (M26.621) Not Available [facility] 4 03:06:17 Bilateral tinnitus 05728560102 02 Active 2018 Tinnitus, bilateral ; Note: Date Diagnosed : 08/25/2018 11:56 AM (H93.13) Not Available [facility] 4 03:06:18 Impacted cerumen of bilateral ears 60787013821 78946 Active 2016 Impacted cerumen, bilateral ; Note: Date Diagnosed : 08/30/2016 10:56 AM (H61.23) Not Available [facility] 4 03:06:17 Abnormal auditory perceptio n 37304502 Active 2018 Other abnormal auditory perceptio ns, right ear; Note: Date Diagnosed : 08/25/2018 11:56 AM (H93.291) Not Available [facility] 4 03:06:16 Tinnitus of left ear 94327413196 06 Active 2015 Tinnitus, left ear; Note: Date Diagnosed : 10/07/2015 11:01 AM (H93.12) Not Available [facility] 4 03:06:16 Neck pain 08428951 Active 2018 Cervicalg ia; Note: Date Diagnosed : 10/28/2018 1:03 PM (M54.2) Not Available [facility] 4 03:06:18 Problem Notes None recorded. Procedures Surgical History Date Name Laterality Status Provider Name and Address Organization Details Recorded Time 5 Cerumen removal without microscope bilat completed MARIJA EISENBERG PA-C [address] [place] [address],[address], [phone], [facility] 05/19/2024 10:08:18 4 Cerumen removal without microscope bilat completed MAYRA FORTUNE PA-C [address] [place] [address],[address], [phone], [facility] 11/20/2023 10:19:41 Imaging Results None recorded. Procedure Notes None recorded. Medical Equipment None Reported. Allergies Allergen ID Allergen Name Allergen Category Reaction Reaction Severity Criticality Documentation Date Start Date Code Code System Note Provider Name and Address Organization Details Recorded Time [id number] penicilli n V potassium medicatio n other Not available Not available 08/06/2023 41267 5 RxNorm React ion: unkno wn, unspe cifie d;; Not Available [facility] 4 01:25:37 560447 erythromy rodrick ethylsucc inate medicatio n other [...] mg capsule 01/20 completed Medicati on ID: [id number] D uration Value: 90 Brand Name: celecoxi b Send Method: E-Prescr ibed Sub s Allowed: subs OK Medic ationGen ericName : celecoxi b Not Available Not Available Not Available Colace 100 mg capsule 01/20 completed Medicati on ID: [id number] B rand Name: Colace S end Method: [...] a dose pack active Medicati on ID: [id number] B rand Name: methylpr ednisolo ne Send Method: E-Prescr ibed Sub s Allowed: subs OK Medic ationGen ericName : methylpr ednisolo ne Not Available Not Available Not Available celecoxib 100 mg capsule TAKE ONE CAPSULE BY MOUTH TWICE A DAY WITH FOOD active Not Available Not Available No t Available magnesium 30 mg tablet 01/20 completed Medicati on ID: [id number] B rand Name: magnesiu m Send Method: E-Prescr ibed Sub s Allowed: subs OK Medic ationGen ericName : magnesiu m Not Available Not Available Not Available rosuvasta tin 5 mg tablet TAKE 1 TABLET BY MOUTH 1 TIME EACH DAY. active Not Available Not Available No t Available rosuvasta tin 10 mg tablet active Medicati on ID: [id number] B rand Name: rosuvast atin Sen d Method: E-Prescr ibed Sub s Allowed: subs OK Medic ationGen ericName : rosuvast atin Not Available Not Available Not Available omeprazol e magnesium 20 mg capsule,d elayed release 01/20 completed Medicati on ID: [id number] B rand Name: omeprazo le magnesiu m Send Method: E-Prescr ibed Sub s Allowed: subs OK Medic ationGen ericName : omeprazo le magnesiu m Not Available Not Available Not Available [facility] 180 mg tablet Take 1 tablet by mouth once a day 01/20 completed Medicati on ID: [id number] D uration Value: 30 Brand Name: Sandy [facility]ergy Send Method: E-Prescr ibed Sub s Allowed: subs OK Medic ationGen ericName : [facility] Not Available Not Available Not Available Flonase Allergy Relief 50 mcg/actua tion nasal spray,ryan pension 2 puff into both nostrils once a day 01/20 completed Medicati on ID: [id number] D uration Value: 120 Brand Name: Flonase Allergy Relief S end Method: E-Prescr ibed Sub s Allowed: subs OK Medic ationGen ericName : Flonase Allergy Relief Not Available Not Available Not Available Probiotic (B. coagulans ) 10 billion cell capsule,d elayed release 01/20 completed Medicati on ID: [id number] B rand Name: Probioti c (B. coagulan s) Send Method: E-Prescr ibed Sub s Allowed: subs OK Medic ationGen ericName : Probioti c (B. coagulan s) Not Available Not Available Not Available Vitals Date Recorded Body height Body mass index (BMI) Body weight Provider Name and Address Organization Details Last Updated DateTime 05/19/2024 162.56 cm 21.1 kg/m2 87766.86 g Yessi Bowman [facility] 05/19/2024 09:59:39 Social History None recorded. Functional Status None recorded. Mental Status None recorded. Family History Nothing Reported. Medical History No medical history recorded. Gynecological HistoryNo gynecological history recorded. Obstetrics History GPAL:G 0 P 0 0 0 0 Past Encounters Encounter ID Performer Location Encounter Start Date Encounter Closed Date Diagnosis/Indication Diagnosis SNOMED-CT Code Diagnosis ICD10 Code Diagnosis Note [id number] SMITA PETERSEN MD [facility] [address] [address] 05/19/2024 09:53:11 05/19/2024 10:07:03 Impacted cerumen of bilateral ears [id number] 342048 H61.23 Health Concerns Section Related Observation LastModified by Organization Detai ls LastModified Time None Recorded Concern Status LastModified by Organization Details LastModified Time None Recorded Payers Encounter Date Sequence Insurance Name Policy Number Policy Aguirre Covered Member ID Aguirre Member ID Guarantor Name 05/19/2024 1 [place] [employer] Yessi Morin [id number] Yessi Morin 05/19/2024 2 [place] [id number] Yessi Saravias [id number] Yessigilmar Saravias Notes Date Note Type Note Provider Name and Address Organization Details Recorded Time 05/19/2024 text/html 73-year-old female presents for cerumen removal. No acute issues since last visit. SMITA PETERSEN MD [address] [place] [address], [phone], [facility] - [facility] 05/19/2024 14:17:28 OBGyn Episode No OBEpisode recorded.
--- OUTSIDE RECORDS SUMMARY | 2024-05-19 19:51 | XMS_ITS | Clinical Summary ---
Author Organization [facility] Address [address] [place] [address] Phone Care Team Providers Care Wind Up Worker Name Role Phone Tamiko Mohr Primary Care Provider Allergies Active Allergy Reactions Criticality Noted Date Comments Erythromycin Nausea And Vomiting 06/01/2020 Penicillins Rash 06/01/2020 Medications alendronate (FOSAMAX) 70 mg tablet Take 1 Tablet by mouth every 7 days. Active celecoxib (CeleBREX) 100 mg capsule Take 1 capsule (100 mg total) by mouth 2 (two) times a day. Active cholecalciferol (VITAMIN D-3) 25 mcg (1,000 unit) tablet Take 1 tablet by mouth daily. Active gabapentin (NEURONTIN) 300 mg capsule 1 capsule in the am, 2 capsule at night Active meclizine (ANTIVERT) 25 mg tablet Take 1 Tablet by mouth as needed. Active zolpidem (AMBIEN) 5 mg tablet Take 1 tablet by mouth at bedtime. Active rosuvastatin (CRESTOR) 5 mg tablet Take 1 tablet (5 mg total) by mouth 1 (one) time each day. 90 tablet 1 03/05/2024 Active amLODIPine (NORVASC) 2.5 mg tablet Take 1 tablet (2.5 mg total) by mouth 1 (one) time each day. 90 tablet 1 03/05/2024 Active atenoloL (TENORMIN) 100 mg tablet Take 1 tablet (100 mg total) by mouth 1 (one) time each day. 90 tablet 1 03/05/2024 Active losartan (COZAAR) 50 mg tablet Take 1 tablet (50 mg total) by mouth 2 (two) times a day. 90 tablet 1 03/05/2024 Active Active Problems Problem Noted Date Diagnosed Date Leg cramps 07/26/2023 Overview (01/06/2024): Last Assessment & Plan: Patient with complaints of leg cramps usually at night. Explained her it is most likely not vascular. Not ambulatory. Told her she could try using [id number] magnesium pills and she could also try drinking tonic water with quinine. To sleep with a pillow under her knee Pulsatile tinnitus 12/14/2021 Overview (01/06/2024): Last Assessment & Plan: We did discuss her pulsatile tinnitus. At this could be related to her blood pressure. We did do a carotid artery ultrasound which did not show significant plaque that would be causing this. We did discuss that there are other etiologies that could cause this as well and if it is concerning she should see an ear nose and throat doctor. Fortunately it has improved with the improvement in her blood pressure. Carotid stenosis 06/01/2020 Assessment & Plan (02/18/2024 3:05 PM EST): Carotid duplex in the past showing less than 50% stenosis in the bilateral carotid arteries. Patient continues on statin. No changes to her medical therapies at this time. Chest pain 06/01/2020 Assessment & Plan (02/18/2024 4:15 PM EST): Patient is history of chronic chest pain syndrome which has been worked up in the past with nuclear stress testing. Reports that her symptoms are worse than they were a year ago. As such she will undergo testing with a stress echocardiogram to evaluate her exercise capacity, hemodynamic response to exercise and assess for any signs of ischemia. Orders: Comprehensive metabolic panel; Future Magnesium; Future Stress echocardiogram (TTE) exercise with PRN contrast, bubble, strain, and 3D order panel; Future Lipid panel; Future Lipid panel Dyslipidemia 06/01/2020 Assessment & Plan (02/18/2024 4:15 PM EST): Patient continues on rosuvastatin. Will update labs. Orders: Lipid panel; Future Lipid panel Hypertension 06/01/2020 Assessment & Plan (02/18/2024 4:15 PM EST): Patient's blood pressure is under excellent control with a reading today of 130/62. Would recommend that she continue with amlodipine, atenolol and losartan. She reports some lightheadedness when arising from a seated position or from standing quickly from a bent position. It may be because she is not maintaining proper hydration. Nonetheless I will stop hydrochlorothiazide for now and encouraged her to maintain better hydration. She will monitor her blood pressures at home and if they are elevated I we will increase the amlodipine instead. Orders: Comprehensive metabolic panel; Future Magnesium; Future Stress echocardiogram (TTE) exercise with PRN contrast, bubble, strain, and 3D order panel; Future PVC's (premature ventricular contractions) 06/01 Assessment & Plan (02/18/2024 3:05 PM EST): Patient has history of PVCs with symptomatic palpitations which has been well- managed on her present dose of beta-nina. Patient denies any worsening palpitations or symptoms. Continue to monitor. Resolved Problems Problem Noted Date Diagnosed Date Resolved Date Left leg pain 01/21/2023 02/18/2024 Overview (01/06/2024): Last Assessment & Plan: Patient complains of left leg pain the left leg is more swollen I am not sure what is causing the pain it could be due to the Smith's cyst it could be vascular issues though she has 2+ lower 2+ pedal pulses on that side. She has venous insufficiency bilateral identified as venous insufficiency due to reflux of the greater saphenous veins. She has not had a vascular study done. Will do PVRs of the left leg. If they are abnormal she will need a vascular evaluation if they are normal I told her she needs an orthopedic evaluation to see if the Smith's cyst is contributing to her calf pain. Dyspnea 06/01/2020 02/18/2024 Palpitations 06/01/2020 02/18/2024 Encounters Date Type Department Care Team Description 04/14/2024 1:30 PM EST Ancillary Procedure [facility] [address] [place] [address] Primary hypertension; Chest pain, unspecified type; Shortness of breath 03/05/2024 Telephone [facility] [address] [place] [address] Gisselle Moon NP 02/18/2024 2:40 PM EST Office Visit [facility] [address] [place] [address] Gisselle Moon NP Primary hypertension (Primary Dx); Chest pain, unspecified type; Dyslipidemia; Stenosis of carotid artery, unspecified laterality; PVC's (premature ventricular contractions); Shortness of breath from Last 3 Months Medical History Medical History Date Comments GERD (gastroesophageal reflux disease) Osteoarthritis Osteoporosis Vertigo Family History Medical History Relation Name Comments Basal cell carcinoma Brother Hypertension Brother hypercholesterolemia Brother Coronary artery disease Father Stroke Father Atrial fibrillation Mother Coronary artery disease Mother Stroke Mother Relation Name Status Comments Brother Father Mother Social History Tobacco Use Types Packs/Day Years Used Date Smoking Tobacco: Never Smokeless Tobacco: Never Tobacco Cessation:Counseling Given: Not Answered Alcohol Use Standard Drinks/Week Comments Not Currently 0 (1 standard drink = 0.6 oz pur e alcohol) Comments Unknown Sex and Gender Information Value Date Recorded Sex Assigned at Not on file Legal Sex Female 5:54 PM EST Gender Identity Not on file Sexual Orientation Not on file Obstetrics History Last Filed Vital Signs Vital Sign Reading Time Taken Comments Blood Pressure 130/62 02/18/2024 2:29 PM EST Pulse 54 02/18/2024 2:29 PM EST Temperature - - Respiratory Rate - - Oxygen Saturation 98% 02/18/2024 2:29 PM EST Inhaled Oxygen Concentration - - Weight 56.4 kg (124 lb 4.8 oz) 02/18/2024 2:29 P M EST Height 162.6 cm (5' 4 ) 02/18/2024 2:29 PM EST Body Mass Index 21.34 02/18/2024 2:29 PM EST Plan of Treatment Health Maintenance Due Date Last Done Comments Breast Cancer Screening 1950 Pneumococcal Vaccine: 50+ Years (1 of 1 - PCV) 08/10/2001 Zoster Vaccines (1 of 2) 08/10/2001 Colorectal Cancer Screening: Colonoscopy 02/24/2022 Depression Screening 02/24/2022 Falls Risk Assessment 02/24/2022 Hepatitis C Screening 02/24/2022 Medicare Annual Wellness Visit 02/24/2022 Osteoporosis Screening (Bone Density Screening) 02/24/2022 Social Influencers of Health Screening 02/24/2022 COVID-19 Vaccine (4 - 2023-2 5 season) 2023 03/02/2021, 06/25/2020, 05/28/2020 Influenza Vaccine (#1) 2023 , 01/24/2021, 12/25/2019 Hypertension/CHF/CAD Annual BMP Blood Test 03/11/2025 03/11/2024 RSV Immunization Patients 60 + Years Old (1 - 1-dose 75+ series) 08/10/2026 Cholesterol Screening (Lipid Panel) 03/11/2029 03/11/2024 DTaP,Tdap,and Td Vaccines (2 - Td or Tdap) 03/05/2032 03/05/2022 HIB Vaccines Aged Out No longer eligi ble based on patient's age to complete this topic HPV Vaccines Aged Out No longer eligi ble based on patient's age to complete this topic Hepatitis A Vaccines Aged Out No long er eligible based on patient's age to complete this topic Hepatitis B Vaccines Aged Out No long er eligible based on patient's age to complete this topic IPV Vaccines Aged Out No longer eligi ble based on patient's age to complete this topic MMR Vaccines Aged Out No longer eligi ble based on patient's age to complete this topic Meningococcal ACWY Vaccine Aged Out N o longer eligible based on patient's age to complete this topic Meningococcal B Vacine Aged Out No lo nger eligible based on patient's age to complete this topic RSV Immunization Patients Under 20 months Aged Out No longer eligible b ased on patient's age to complete this topic Varicella Vaccines Aged Out No longer eligible based on patient's age to complete this topic Procedures Procedure Name Priority Date/Time Associated Diagnosis Comments STRESS ECHOCARDIOGRAM EXERCISE Routine 04/14/2024 2:39 PM EST Primary hypertension Chest pain, unspecified type Shortness of breath LIPID PANEL WITH REFLEX TO DIRECT LDL Routine 03/11/2024 3:27 PM EST Hyperlipidemia MAGNESIUM Routine 03/11/2024 3:27 PM EST Primary hypertension Chest pain, unspecified type COMPREHENSIVE METABOLIC PANEL Routine 03/11/2024 3:27 PM EST Primary hypertension Chest pain, unspecified type from Last 3 Months Results * STRESS ECHOCARDIOGRAM EXERCISE (04/14/2024 2:39 PM EST) AV Mean Gradient 4 mmHg CV PACS STRESS Ao VTI 37.5 cm CV PACS STRESS AV Peak Toño 1.5 m/s CV PACS STRESS AV Peak Gradient 9 mmHg CV PACS STRESS AV Area Continuity Equation 1.8 cm2 CV PACS STRESS AV Area Peak Velocity 1.8 cm2 CV PACS STRESS LVOT Diameter 1.8 cm CV PAC S STRESS LVOT Mean Toño 0.6 m/s CV PAC S STRESS LVOT Mean Grad 2 mmHg CV PA CS STRESS LVOT Peak VTI 27.0 cm CV PAC S STRESS LVOT Peak Toño 1.0 m/s CV PAC S STRESS LVOT Peak Gradient 4 mmHg CV PACS STRESS LVOT Area 2.5 cm2 CV PACS STRESS LVOT Stroke Volume 69 mL CV PACS STRESS MV Deceleration Dolores 4.1 m/s2 CV PACS STRESS E Wave Deceleration Time 241 119 - 242 ms CV PACS STRESS MV PHT 85 ms CV PACS STRESS MV Peak A Toño 0.98 m/s CV PAC S STRESS MV Peak E Toño 1.03 m/s CV PAC S STRESS MV Mean Gradient 1 mmHg CV PACS STRESS MV Mean Gradient 1 mmHg CV PACS STRESS MV VTI 38.8 cm CV PACS STRESS Mitral Valve Max Velocity 1.1 m/s CV PACS STRESS MV Peak Gradient 4 mmHg CV PACS STRESS MV Area PHT 2.6 cm2 CV PACS STRESS MV Area Continuity Equation 1.8 cm2 CV PACS STRESS TR Peak Velocity 2.81 m/s CV PACS STRESS TR Peak Gradient 32 mmHg CV PACS STRESS LVOT:AV VTI Index 0.72 CV PACS STRESS MV VTI:LVOT VTI ratio 1.4 CV PACS STRESS LVOT flow 153 mL/s CV PACS STRESS AV Velocity Ratio 0.67 CV PACS STRESS E/A Ratio 1.1 CV PACS STRESS Target HR 126 bpm CV PACS STRESS Baseline HR 46 bpm CV PACS STRESS Baseline SBP 144 mmHg CV PACS STRESS Baseline DBP 56 mmHg CV PACS STRESS Peak HR 99 bpm CV PACS STRESS Estimated workload 10.1 METS CV PACS STRESS Percent HR 67 % CV PACS STRESS Exercise/injectio n duration (min) 7 min CV PACS STRESS Exercise/injectio n duration (sec) 49 sec CV PACS STRESS Max HR Percent 66 % CV PA CS STRESS Peak SBP 160 mmHg CV PACS STRESS Peak DBP 86 mmHg CV PACS STRESS Rate Pressure Product 15,840.0 mmHg*bpm CV PACS STRESS Anatomical Region Laterality Modality Ultrasound Narrative 04/15/2024 5:46 PM EST ?Stress ECG was non-diagnostic due to failure to achieve 85 percent of the maximum age-predicted heart rate. ?Exercise stress test was performed. Exercise capacity was excellent. ?? Heart rate response was blunted secondary to beta-blockade; normal blood pressure response. ?Post??Stress??Impression: The study is non-diagnostic due to inadequate stress. ??The patient had a limited heart rate did not reach 85% of age-predicted heart rate which decreases the sensitivity but not the specificity of the exam. ??For the period of time that she did walk there is no evidence for ischemia by EKG or echocardiographic criteria. ??No chest pain was reported during the study complaints of fatigue were noted Left Ventricle Wall thickness is normal. Systolic function is normal with an ejection fraction in the 55-70% range. There are no regional LV wall motion abnormalities. Study Details Overall the study quality was adequate. Stress Findings A Rl protocol stress test was performed. Overall, the patient's exercise capacity was excellent. Total stress time was 7 min and 49 sec. The test was stopped because the patient experienced fatigue. The patient's hemodynamic response was non-diagnostic due to medication. Blood pressure demonstrated a normal response. Heart rate demonstrated a blunted response. Onset of symptoms occurred at Stage 2 of the protocol. The patient reported fatigue during the stress test. ECG 73-year-old female with worsening chest discomfort and shortness of breath with exertion; rule out ischemia. Cardiac risk factors include hyperlipidemia and hypertension; she has a history of PAD. No previous cardiac events. The patient's last dose of beta-blockade was on the day of the test at 8 am. Baseline ECG shows sinus bradycardia. Arrhythmias during stress: rare premature ventricular contractions (PVCs) . There is no significant ST abnormalities during stress. Arrhythmias during recovery: rare premature ventricular contractions (PVCs). ST changes returned to normal during recovery. The result of the stress ECG was non-diagnostic for ischemia due to failure to achieve 85 percent of the maximum age-predicted heart rate, likely secondary to beta-blockade. Echo Post Stress Left ventricular cavity size decreased from baseline. Left ventricular systolic function improved from baseline. Normal left ventricle diastolic function post-stress. Nuclear Measurements The study is non-diagnostic due to inadequate stress. The patient had a limited heart rate did not reach 85% of age-predicted heart rate which decreases the sensitivity but not the specificity of the exam. For the period of time that she did walk there is no evidence for ischemia by EKG or echocardiographic criteria Procedure Note Paula Abbasi NP / Yvan Alan MD - 04/15/2024 ? ? Stress ECG was non-diagnostic due to failure to achieve 85 percent ofthe maximum age-predicted heart rate. ? ? Exercise stress test was performed. Exercise capacity was excellent.Heart rate response was blunted secondary to beta-blockade; normal bloodpressure response. ? ? Post??Stress??Impression: The study is non-diagnostic due to inadequatestress. The patient had a limited heart rate did not reach 85% ofage-predicted heart rate which decreases the sensitivity but not thespecificity of the exam. For the period of time that she did walk thereis no evidence for ischemia by EKG or echocardiographic criteria. Nochest pain was reported during the study complaints of fatigue werenoted us Gisselle Moon NP CV ECHO PROCEDURES Final Res ult * Lipid panel with reflex to direct LDL (03/11/2024 3:27 PM EST) [facility] Cholesterol 153 0 - 200 mg/dL LAB CHEMISTRY METHOD 03/11/2024 5:28 PM EST [facility] Triglycerides 43 0 - 150 mg/dL LAB CHEMISTRY METHOD 03/11/2024 5:[address] [facility] HDL 98 >=40 mg/dL LAB CHEMISTRY METHOD 03/11/2024 5:[address] [facility] Comment:Results verified by repeat testing LDL Calculated 46 0 - 100 mg/dL LAB CHEMISTRY METHOD 03/11/2024 5:[address] [facility] VLDL Cholesterol Shaheen 8.6 mg/dL LAB CHEMISTRY METHOD 03/11/2024 5:[address] [facility] Non HDL Chol. (LDL+VLDL) 55 <145 mg/dL LAB CHEMISTRY METHOD 03/11/2024 5:[address] [facility] Chol/HDL Ratio 1.6 0.0 - 4.4 LAB CHEMISTRY METHOD 03/11/2024 5:[address] [facility] Blood Venous blood specimen / Unknown Venipuncture / Unknown 03/11/2024 3:27 PM EST 03/11/2024 4:16 PM EST Gisselle Benitezucteresa MANAGING SUPERVISOR LAB BLOOD ORDERABLES Final R esult Performing Organization Address City/[facility] [address]/ZIP Co de Phone Number [facility] [address] [place] [address], [place] [phone] * Magnesium (03/11/2024 3:27 PM EST) Magnesium 2.3 1.9 - 2.6 mg/dL LAB CHEMISTRY METHOD 03/11/2024 5:[address] [facility] Blood Venous blood specimen / Unknown Venipuncture / Unknown 03/11/2024 3:27 PM EST 03/11/2024 4:16 PM EST Gisselle Bartolucci MANAGING SUPERVISOR LAB BLOOD ORDERABLES Final R esult [facility] [address] [place] [address], [place] [phone] * (ABNORMAL) Comprehensive metabolic panel (03/11/2024 3:27 PM EST) Sodium 141 133 - 145 mmol/L LAB CHEMISTRY METHOD 03/11/2024 5:[address] [facility] Potassium 4.5 3.5 - 5.5 mmol/L LAB CHEMISTRY METHOD 03/11/2024 5:[address] [facility] Chloride 106 96 - 110 mmol/L LAB CHEMISTRY METHOD 03/11/2024 5:[address] [facility] CO2 30 21 - 32 mmol/L LAB CHEMISTRY METHOD 03/11/2024 5:[address] [facility] Anion Gap 5 3 - 11 LAB CHEMISTRY METHOD 03/11/2024 5:[address] [facility] Glucose 114(H) 70 - 100 mg/dL LAB CHEMISTRY METHOD 03/11/2024 5:[address] [facility] BUN 19 5 - 25 mg/dL LAB CHEMISTRY METHOD 03/11/2024 5:[address] [facility] Creatinine 0.83 0.50 - 1.10 mg/dL LAB CHEMISTRY METHOD 03/11/2024 5:[address] [facility] eGFR 75 >=60 mL/min/1. 73m2 LAB CHEMISTRY METHOD 03/11/2024 5:[address] [facility] Comment:Calculation based on the??Chronic Kidney Disease Epidemiology Collaboration (CKD-EPI) equation refit??without adjustment for race. BUN/Creatinine Ratio 22.9 LAB CHEMISTRY METHOD 03/11/2024 5:[address] [facility] Calcium 10.1 8.5 - 10.5 mg/dL LAB CHEMISTRY METHOD 03/11/2024 5:[address] [facility] AST (SGOT) 14 10 - 42 unit/L LAB CHEMISTRY METHOD 03/11/2024 5:[address] [facility] ALT (SGPT) 23 10 - 60 unit/L LAB CHEMISTRY METHOD 03/11/2024 5:02 PM EST [facility] Alkaline Phosphatase 80 42 - 121 unit/L LAB CHEMISTRY METHOD 03/11/2024 5:[address] [facility] Total Protein 7.0 6.0 - 8.0 g/dL LAB CHEMISTRY METHOD 03/11/2024 5:02 PM EST [facility] Albumin 4.2 3.2 - 5.0 g/dL LAB CHEMISTRY METHOD 03/11/2024 5:[address] [facility] Total Bilirubin 0.5 0.0 - 1.4 mg/dL LAB CHEMISTRY METHOD 03/11/2024 5:[address] [facility] Blood Venous blood specimen / Unknown Venipuncture / Unknown 03/11/2024 3:27 PM EST 03/11/2024 4:16 PM EST Gisselle Moon MANAGING SUPERVISOR LAB BLOOD ORDERABLES Final R esult [facility] [address] [place] [address], [place] [phone] from Last 3 Months Insurance MEDICARE [facility] Care Teams Wind Up Worker Relationship Specialty Start Date End Date Tamiko Mohr PA [address] [place] [address] [address] [place] [address] PCP - General 02/18/24
--- OUTSIDE RECORDS SUMMARY | 2024-05-19 19:51 | XMS_ITS | Patient Health Record ---
Author Organization [facility] Address [address] [place] [address] Care Team Providers Care Harnessmaker Apprentice Name Role Phone Mariza RICKETTS, Chad Primary Care Provider Ariel Westmie Unavailable [phone] Lula Victor Unavailable [phone] Allergies Allergen (clinical drug ingredient) Drug/Non Drug Allergy documented on EMR Reaction Allergy Type Onset Date Status erythromycin Erythromycin stomach upset Drug Allergy Active Penicillin rash Drug Allergy Active Reason For Referral No Information Medications Medication SIG (Take, Route, Frequency, Duration) Notes Start Date End Date Status Zolpidem Tartrate 5 MG 1 tablet at bedti me as needed Orally Once a day Active Losartan Potassium 50 MG 1 tablet Orally twice a day Active Gabapentin 300 MG as directed Orally t wice a day Active Vitamin D 25 MCG [...] Once a day for 30 day(s) Active amLODIPine Besylate 2.5 MG 1 tablet Oral ly Once a day Active Meclizine HCl 25 MG as directed Orally PRN Active Rosuvastatin Calcium 5 MG 1 tablet Orall y Once a day Active Social History Tobacco Use: [...] Are you an other tobacco user? No Problems Problem Type SNOMED Code ICD Code Onset Dates Problem Status W/U Status Risk Notes Problem [id number] Neuropathy (G62.9) Active confirmed Vital Signs Blood pressure diastolic 72 mm Hg 07/23/2023 Height 5 ft 4 in in 07/23/2023 Blood pressure systolic 126 mm Hg 07/23/2023 Weight 125 lbs 07/23/2023 BMI 21.45 kg/m2 07/23/2023 Encounters Encounter Location Date Provider Diagnosis [facility] [address] 07/23/2023 Lula Perica Contusion of left great toe with damage to nail, initial encounter S90.212A ; Neuropathy G62.9 and Subungual hematoma of toe of left foot, initial encounter S90.222A [facility] [address] [address] 07/23/2023 Kim Culver Assessments Encounter Date Diagnosis (ICD Code) Assessment Notes Treatment Notes Treatment Clinical Notes Section Notes 07/23/2023 Contusion of left great toe with damage to nail, initial encounter (ICD-10 - S90.212A) 07/23/2023 Neuropathy (ICD-10 - G62.9) 07/23/2023 Subungual hematoma of toe of left foot, initial encounter (ICD-10 - S90.222A) Plan Of Treatment No Information Insurance Providers Payer Name Payer Address Payer Phone Subscriber Number Group Number Insured Name Patient Relationship to Insured Coverage Start Date Coverage End Date Medicare [employer] [address] [place] [address] [id number] Yessi Morin Self - patient is the insured [facility] [address] [place] [address] [phone] [id number] Yessi Morin Self - patient is the insured Medical (General) History Medical History History ICD Code Arthritis Back,Hip,and Knee pain High blood pressure Measles Mumps Chicken pox Numbness Osteoporosis Sciatica Surgical History Surgery Date(Month/Year) laminectomy, left partial , resection le ft synovial cyst cholecystectomy 07/2013 appendectomy 09/16/2011 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
== END 2024-05-19 16:39 | disposition home or self-care (01) ==
LOC: HO.MRI 16:38
PROVIDERS: PCP Physician Assistant; Visit Provider Psychiatry & Neurology Neurology
DX: M54.12 Radiculopathy, cervical region (principal)
CPT/HCPCS: 72141

== ENCOUNTER → 2024-05-19 16:50 | Outpatient (BNV) | payer MEDICARE, SELFPAY | PROVIDERS: PCP Physician Assistant; Visit Provider Radiology Diagnostic Radiology | DX: M54.12 Radiculopathy, cervical region (principal) | CPT/HCPCS: 72141 ==

== ENCOUNTER 2024-06-18 10:28 | Outpatient (REF) | payer MEDICARE, SELFPAY ==
--- NOTE | ~2024-06-18 | US_ITS ---
EXAMINATION: MM DIAGNOSTIC DIGITAL MAMMOGRAPHY, LEFT Limited left breast ultrasound. CLINICAL INFORMATION: Call back from screening for asymmetry in the lateral left breast posterior depth on CC view. COMPARISON: Mammography: [facility] on PACS. TECHNIQUE: Digital mammography is performed in craniocaudal and mediolateral oblique views along with computer-aided detection (CAD). FINDINGS: The breasts are heterogeneously dense, which may obscure small masses (ACR BI-RADS breast composition Category c). The previously seen asymmetry in the lateral left breast posterior depth on CC view does not persist on additional imaging projections and likely represented overlapping breast tissue. No suspicious calcifications, masses or other abnormal findings. Targeted color Doppler ultrasound scanning in the lateral left breast from 1-5 o'clock demonstrates normal fibroglandular breast tissue. There is no sonographic abnormality. Results are provided to the patient at time of visit by the technologist. US/US breast LT limited mamm only IMPRESSION: Asymmetry in the lateral left breast on CC view does not persist no sonographic abnormality is seen. Negative. ASSESSMENT: BI-RADS BI-RADS 1 - Negative RECOMMENDATION: 1 year F/U This patient's information was entered into a reminder system with a target due date for their next mammogram. Electronically signed by: Nilda Paez DO 06/18/2024 11:47 AM EDT
== END 2024-06-18 10:29 | disposition home or self-care (01) ==
LOC: HO.MAMMO 10:28
PROVIDERS: PCP Physician Assistant; Visit Provider Student in an Organized Health Care Education/Training Program
DX: R92.332 Mammographic heterogeneous density, left breast (principal); R92.8 Other abnormal and inconclusive findings on diagnostic imaging of breast; R92.322 Mammographic fibroglandular density, left breast
CPT/HCPCS: 76642; 77065

== ENCOUNTER → 2024-06-18 10:30 | Outpatient (BNV) | payer MEDICARE, SELFPAY | PROVIDERS: PCP Physician Assistant; Visit Provider Internal Medicine | DX: R92.8 Other abnormal and inconclusive findings on diagnostic imaging of breast (principal) | CPT/HCPCS: 76642; 77065; G0279 ==

== ENCOUNTER → 2024-07-23 10:58 | Outpatient (RCR) | payer MEDICARE, SELFPAY | END | disposition home or self-care (01) | LOC: HO.PTCHIC 12-30 09:59 | PROVIDERS: PCP Internal Medicine Endocrinology, Diabetes & Metabolism; Visit Provider Internal Medicine Rheumatology | DX: M51.9 Unspecified thoracic, thoracolumbar and lumbosacral intervertebral disc disorder (principal); M54.32 Sciatica, left side | CPT/HCPCS: 97012; 97014; 97110; 97140; 97530 ==

== ENCOUNTER 2024-10-29 09:04 | Outpatient (REF) | payer MEDICARE, SELFPAY ==
--- NOTE | ~2024-10-29 | MM_ITS ---
EXAMINATION: DXA BONE DENSITY AXIAL HISTORY: OSTEOPOROSIS TECHNIQUE: SplitSecnd Dual energy absorptiometry (DEXA) of the lumbar spine, total left hip, and femoral neck was performed. COMPARISON: Comparison is made with the prior examination dated 12/07/2021. FINDINGS: The bone mineral density of the lumbar spine is 0.992 g/cm2, corresponding to a T-score of -1.4, and a Z-score of 0.6. This is indicative of osteopenia. This represents a BMD change of 2.7% compared to the prior exam. This is not statistically significant. The bone mineral density of the left total hip is 0.726 g/cm2, corresponding to a T-score of -2.2, and a Z-score of -0.4. This is indicative of osteopenia. This represents a BMD change of 4.6% compared to the prior exam. This is not statistically significant. The bone mineral density of the left femoral neck is 0.732 g/cm2, corresponding to a T-score of -2.2, and a Z-score of -0.1. This is indicative of osteopenia. This represents a BMD change of 3.1% compared to the prior exam. FRACTURE RISK: The FRAX index suggests a ten year probability of major osteoporotic fracture of 12.8%, and of hip fracture 3.4%. MM/XR DEXA axial skeleton IMPRESSION: Based on bone mineral density, and according to World Health Organization (WHO) criteria, the diagnosis is consistent with osteopenia. Statistically, 68% of repeat scans fall within 1 SD (+/- 0.010 g/cm2 for AP spine L1-L4) and 1 SD (+/- 0.012 g/cm2 for femur total) FRAX is a trademark of the [employer]'s Major for Metabolic Bone Disease, a World Health Organization (WHO) Collaborating Center. Electronically signed by: Zaheer Kraft MD 10/29/2024 10:21 AM EDT
--- OUTSIDE RECORDS SUMMARY | 2024-10-29 09:27 | XMS_ITS | Clinical Summary ---
Author Organization [facility] Address [address] [place] [address] Phone Care Team Providers Care Crane Rigger Name Role Phone Tamiko Mohr Primary Care Provider [phone] Allergies Active Allergy Reactions Criticality Noted Date [...] 1 tablet by mouth at bedtime. Active losartan (COZAAR) 50 mg tablet TAKE 1 TABLET BY MOUTH TWICE A DAY 180 tablet 1 07/06/2024 Active atenoloL (TENORMIN) 100 mg tablet TAKE 1 TABLET BY MOUTH 1 TIME EACH DAY. 90 tablet 1 07/07/2024 Active rosuvastatin (CRESTOR) 5 mg tablet TAKE 1 TABLET BY MOUTH 1 TIME EACH DAY. 90 tablet 1 08/24/2024 Active hydroCHLOROthia zide (MICROZIDE) 12.5 mg capsule Take 1 capsule (12.5 mg total) by mouth 1 (one) time each day in the morning. 90 capsule 1 09/14/2024 Active Active Problems Problem Noted Date Diagnosed Date Leg cramps 07/26/2023 Overview (01/06/2024): Last Assessment & Plan: Patient with complaints of leg cramps usually at night. Explained her it is most likely not vascular. Not ambulatory. Told her she could try using ynls-llz-eghefcs magnesium pills and she could also try [...] Encounters Date Type Department Care Team Description 09/28/2024 Telephone [facility] Cardiology [facility] [address] [place] [address] Gisselle Moon NP Results 09/11/2024 Telephone [facility] [address] [place] [address] Gisselle Moon NP Medication from Last 3 Months Medical History Medical [...] 2) 08/10/2001 Colorectal Cancer Screening: Colonoscopy 02/24/2022 Falls Risk Assessment 02/24/2022 Hepatitis C Screening 02/24/2022 Medicare Annual Wellness Visit 02/24/2022 Osteoporosis Screening (Bone Density Screening) 02/24/2022 Social Influencers of Health Screening 02/24/2022 COVID-19 Vaccine (4 - 2023-2 5 season) 2023 03/02/2021, 06/25/2020, 05/28/2020 Depression Screening 03/25/2024 Influenza Vaccine (#1) 2024 2, 01/24/2021, 12/25/2019 Hypertension/CHF/CAD Annual BMP Blood Test 10/13/2025 10/13/2024, 09/24/2024, 03/11/2024 RSV Immunization Adult Patients (1 - 1-dose 75+ series) 08/10/2026 Cholesterol [...] age to complete this topic Meningococcal B Vaccine Aged Out No l onger eligible based on patient's age to complete this topic RSV Immunization Patients Under 20 months Aged Out No longer eligible b ased on patient's age to complete this topic Varicella Vaccines Aged Out No longer eligible based on patient's age to complete this topic Procedures Procedure Name Priority Date/Time Associated Diagnosis Comments BASIC METABOLIC PANEL Routine 10/13/2024 1:47 PM EDT PVC's (premature ventricular contractions) BASIC METABOLIC PANEL Routine 09/24/2024 3:43 PM EDT Primary hypertension LIPID PANEL WITH REFLEX TO DIRECT LDL Routine 03/11/2024 3:27 PM EST Hyperlipidemia from Last 3 Months or Most Recently Relevant to Health Maintenance Results * (ABNORMAL) Basic metabolic panel (10/13/2024 1:47 PM EDT) Only the most recent of2 resultswithin the time period is included. Glucose 95 70 - 99 mg/dL [facility] Blood Urea Nitrogen (BUN) 18 8 - 27 mg/dL [facility] Creatinine 0.86 0.57 - 1.00 mg/dL [facility] 1 eGFR 71 >59 mL/min/1.7 3 [facility] BUN/Creatinine Ratio 21 12 - 28 [facility] 1 Sodium 139 134 - 144 mmol/L [facility] Potassium 5.2 3.5 - 5.2 mmol/L [facility] 1 Chloride 99 96 - 106 mmol/L [facility] Carbon Dioxide 26 20 - 29 mmol/L [facility] 1 Calcium 10.7(H) 8.7 - 10.3 mg/dL [facility] Comment:Verified by repeat analysis Blood Venous blood specimen / Unknown 10/13/2024 1:47 PM EDT 10/13/2024 Narrative [facility] 1 - 10/14/2024 5:06 AM EDT Performed at: [facility] [id number] Automobile Glass Technician: Socorro Rodriguez MD, Phone: [phone] us Gisselle Moon MANAGER ANALYSIS LAB BLOOD ORDERABLES Final R esult [facility] * Lipid panel with reflex to direct LDL (03/11/2024 3:27 PM EST) Cholesterol 153 0 - 200 mg/dL LAB CHEMISTRY METHOD 03/11/2024 5:28 PM EST [facility] Triglycerides 43 0 - 150 mg/dL LAB CHEMISTRY METHOD 03/11/2024 5:28 PM EST [facility] HDL 98 >=40 mg/dL LAB CHEMISTRY METHOD 03/11/2024 5:28 PM EST [facility] Comment:Results verified by repeat testing LDL Calculated 46 0 - 100 mg/dL LAB CHEMISTRY METHOD 03/11/2024 5:28 PM EST [facility] VLDL Cholesterol Shaheen 8.6 mg/dL LAB CHEMISTRY METHOD 03/11/2024 5:28 PM EST [facility] Non HDL Chol. (LDL+VLDL) 55 <145 mg/dL LAB CHEMISTRY METHOD 03/11/2024 5:28 PM EST [facility] Chol/HDL Ratio 1.6 0.0 - 4.4 LAB CHEMISTRY METHOD 03/11/2024 5:28 PM EST [facility] Blood Venous blood specimen / Unknown Venipuncture / Unknown 03/11/2024 3:27 PM EST 03/11/2024 4:16 PM EST us Gisselle Moon MANAGER ANALYSIS LAB BLOOD ORDERABLES Final R esult [facility] ([facility]) [facility] [address] [place] [address], from Last 3 Months or Most Recently Relevant to Health Maintenance Insurance MEDICARE [facility] Care Teams Crane Rigger Relationship Specialty Start Date End Date Tamiko Mohr PA [address] [place] [address] [place] [id number] [facility] - General 02/18/24
--- OUTSIDE RECORDS SUMMARY | 2024-10-29 09:27 | XMS_ITS | Continuity of Care Document ---
Author Organization [facility] [address] [place] [address] Phone [phone] Care Team Providers Care Sack Department Supervisor Name Role Phone Tamiko Mohr Care Team Information Receive r [phone] Problems Active Problems Provider Date Osteoarthritis Chad Dawkins M.D. Onset: Essential hypertension Chad Dawkins M.D. Ons et: 02/13/2022 Hypercholesterolemia Chad Dawkins M.D. Onset : 02/13/2022 Osteoporosis MARIANNA Bolivar Onset: 2023 Hypercalcemia Chad Dawkins M.D. Onset: Paronychia Chad Dawkins M.D. Onset: Cyst of pancreas Chad Dawkins M.D. Onset: Social History Type Date Description Comments Sex Female Sex Unknown Lives With Spouse ETOH Use Occasionally consumes wine Tobacco Use Start: Unknown Patient has never smoked Smoking Status Reviewed: 03/05/24 Patient has never sm oked Allergies and adverse reactions Active Allergies Criticality Reaction Severity Comments Date Penicillins Unable to assess criticality RASH 02/13/2022 Medications Active Medications SIG Qnty Indications Ordering Provider Date Vitamin J067imq (1000 Ut) Capsules 1 by mouth every day Chad Dawkins M.D. 02/13/2022 Meclizine RHC21cv Tablets Take twice daily as needed Emiliana Mcgill MD Losartan Yhypbjmia16qd Tablets Take 1 Tablet By Mouth Twice A Day Clarence Guardado [id number] Capsules Take 1 Capsules By Mouth in Am and 2 hs Norm Kuhn, [id number] Capsules Take One Capsule By Mouth Two Times A Day With Food Norm Kuhn, Zolpidem Hibppuxx6fi Tablets Take half tablet at bedtime as needed Emiliana Mcgill MD Amlodipine Besylate2.5mg Tablets Take 1 tablet every evening Clarence Guardado Hraojjxm391tz Tablets Take 1 Tablet By Mouth Every Day Clarence Guardado Mupirocin2% Ointment Apply Am And PM Around And Under Left Great Toenail Until Improved Maida Loomis PA Rosuvastatin Ghjobnx6uy Tablets Take 1 Tablet By Mouth Every Day Clarence Guardado Alendronate Gdoyyd00op Tablets Please See Attached For Detailed Directions Norm Kuhn, Vital Signs Date Vital Result Comment 03/05/2024 3:49pm BP Systolic 120 mmHg BP Diastolic 60 mmHg Heart Rate 51 /min Height 64 inches 5'4 Weight 127.00 lb BMI (Body Mass Index) 21.8 kg/m2 Results Test Acquired Date Facility Test Result H/L Range Note Urinalysis, Complete 03/05/2024 [facility] [place] 1.014 1.005-1.030 pH 6.0 5.0-7.5 Urine-Color Yellow [...] seen/Few Yeast TNP Trichomonas TNP Comment TNP Calcium 08/23/2023 [facility] Calcium 10.4 mg/dL High 8.7-10.3 PTH, Intact 08/23/2023 [facility] PTH, Intact 41 pg/mL 15-65 CBC With [...] Treatment Future Appointment(s):* 03/09/2025 2:45 pm - Lula Fofana YARDAGE CONTROL OPERATOR FORMING at Main Office 03/05/2024 - MARIANNA Bolivar* E78.00 Pure hypercholesterolemia, unspecified * E83.52 Hypercalcemia * I10 Essential (primary) hypertension * M19.90 Osteoarthritis * K86.2 Cyst of pancreas * M81.0 Osteoporosis NOS * G47.00 Insomnia, unspecified Functional Status Description No Information Available Mental Status Description No Information Available Referrals Description No Information Available
--- OUTSIDE RECORDS SUMMARY | 2024-10-29 09:27 | XMS_ITS | Patient Health Record ---
[facility] Address [address] [place] [address] Care Team Providers Care Tape Weaver Name Role Phone Mariza RICKETTS, Chad Primary Care Provider Kim West Unavailable [phone] Allergies Allergen (clinical drug ingredient) Drug/Non Drug [...] medicine of the day with plain water Orally; Duration: 30 day(s) Active hydroCHLOROthiazide 12.5 MG 1 capsule in the morning Orally Once a day; Duration: 30 day(s) Active amLODIPine Besylate 2.5 MG [...] Problem Status W/U Status Risk Notes Problem Neuropathy (268739733) Neuropathy (G62.9) Active confirmed Plan Of Treatment Next Appt Details Provider Name:Kim Culver , 11/09/2024 10:15:00 AM, [address] [place] [address], [phone], Insurance Providers Payer Name Payer Address Payer Phone Subscriber Number Group Number Insured Name Patient Relationship to Insured Coverage Start Date Coverage End Date Medicare National [employer] [address] [place] [address] [id number] Yessi Morin Self - patient is the insured [facility] [address] [place] [address] [id number] Yessi Morin Self - patient is the insured Medical (General) History Medical History History ICD Code Arthritis Back,Hip,and Knee pain High blood pressure Measles Mumps Chicken pox Numbness Osteoporosis Sciatica Surgical History Surgery Date(Month/Year) laminectomy, left partial , resection le ft synovial cyst cholecystectomy 07/2013 appendectomy 09/16/2011 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
== END 2024-10-29 09:05 | disposition home or self-care (01) ==
LOC: HO.MAMMO 09:04
PROVIDERS: Visit Provider Internal Medicine Rheumatology
DX: M81.0 Age-related osteoporosis without current pathological fracture (principal)
CPT/HCPCS: 77080

== ENCOUNTER → 2024-10-29 09:15 | Outpatient (BNV) | payer MEDICARE, SELFPAY | PROVIDERS: Visit Provider Radiology Diagnostic Radiology | DX: E28.39 Other primary ovarian failure (principal) | CPT/HCPCS: 77080 ==

== ENCOUNTER 2025-01-27 13:55 | Outpatient (AMB) | payer MEDICARE, SELFPAY ==
--- NOTE | 2025-01-27 14:03 | MHC.OFFVIS ---
Intake Visit Reasons: 6M Allergies penicillin V Allergy (Unknown, Verified 09/07/23 13:06) rash Penicillins (PENICILLINS) Allergy (Unknown, Verified 09/07/23 13:06) RASH erythromycin base (ERYTHROMYCIN BASE) Adverse Reaction (Unknown, Verified 09/07/23 13:06) GI UPSET adhesive Allergy (Unknown, Uncoded 09/07/23 13:06) red smliey Medication List - Last Reconciled 01/27/25 by Emiliana Mcgill MD atenolol 100 mg PO DAILY celecoxib 100 mg PO BID gabapentin 300 mg PO TID hydrochlorothiazide 12.5 mg PO DAILY losartan 50 mg PO BID meclizine 25 mg PO BID PRN rosuvastatin 5 mg PO DAILY zolpidem 5 mg PO BEDTIME PRN HPI Comments Details: 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 More episodes of brief vertiginous sensation on getting up and feels being pushed to 1 side . Takes Meclizine immediately and it works in an hour. In the last month it is 2/ wk. Whole upper back thoracic area is uncomfortable and chou snot like to go to bed. Legs feel funny and feel that legs are wrapped in something. 5 days ago woke with dizziness and then left leg felt odd and felt like left leg wanted to go up and legs didn't feel like her own. Seeing Dr Salomon for cardiology. Stopped Rosuvastatin for a month. Also off Alendronate for 2 months. Wakes with both hands numb. L>R calf muscle spasms. left calf bigger than right. Numbness in feet dhara big toe with a feeling of tightness and banded in calves and thighs and big toes. Worse when lying down. 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 Upper back burning pain. She had started Rosuvastatin in . BP is still elevated. Has some carotid plaque for which she gets an annual carotid doppler. Cholesterol elevated. Gets lightheaded and off balance at times. Since her left L5 synovial cyst resection Feb 2020, and decompression and partial laminectomy and medial facetectomy and foraminotomy L4-5, Was doing better and Sx resolved gradually after surgery. Had PT [facility] the [facility]. Has osteoporosis on bone density test. White matter disese seen on previous MRIs. Had some bad headaches. Has numbness and tingling around the knees and calves. Has h/o LBP with right buttock and hip pain. Had another MRI LS spine in December 2020 and a f/u with Dr. Burnham and it looked OK. Had hip Xray and doppler of left calf - negative. H/O fibromyalgia, headaches, vertigo, carpal tunnel syndrome and low back pain. Intermittent tingling in fingers and hands has recurred. [facility] Medical History (Updated 01/27/25 @ 14:15 by Emiliana Mcgill MD) Vertigo Headache Demyelinating disease Carpal tunnel syndrome Peripheral neuropathy Insomnia Lumbar disc disease Cervical disc disease Social History Patient Tobacco Use Status: Never used Tobacco Review of Systems Const Details: General/Constitutional:? Change in appetitedenies.? Fatiguedenies.? Feverdenies.? Weight gainadmits.? Weight lossdenies. ???Sleep:? Difficulty getting to sleepadmits.? Difficulty maintaining sleepadmits.? Daytime sleepinessdenies. ???Respiratory:? Shortness of breathdenies.? Chest paindenies. ???Cardiovascular:? Chest pain at restdenies.? Chest pain with exertiondenies.? Dizzinessdenies.? Fluid accumulation in the legsdenies.? Irregular heartbeatdenies.? Palpitationsdenies. ???Gastrointestinal:? Constipationdenies.? Diarrheaadmits.? Difficulty swallowingdenies.? Heartburndenies.? Nauseadenies. ???Genitourinary:? Frequent urinationdenies.? Urgencydenies.? Incontinencedenies. ???Musculoskeletal:? Neck painadmits.? Back painadmits.? Joint stiffnessadmits.? Sciaticaadmits. ???Neurologic:? Difficulty swallowingdenies.? Balance difficultyadmits.? Coordinationnormal.? Difficulty speakingdenies.? Dizzinessadmits.? Faintingdenies.? Gait abnormalitydenies.? Headacheadmits.? Loss of strengthdenies.? Loss of use of extremitydenies.? Low back painadmits.? Memory lossdenies.? Seizuresdenies.? Ticsdenies.? Tingling/Numbnessfeet and other parts of body with painful itching..? Transient loss of visiondenies.? Tremordenies. ???Psychiatric:? Anxietyadmits.? Auditory/visual hallucinationsdenies.? Delusionsdenies.? Depressed mooddenies.? Stressorsadmits.? Suicidal thoughtsdenies. Physical Exam Neuro Other: Mini Mental Status Exam: Level of Consciousness:??Alert.?Orientation:??Knows correct year, month, date, day and season,?Knows correct city, county and state. Knows correct location and floor.?Registration:??Able to register 3 objects.?Attention:??Serial 7's performed accurately.?Recall:??Able to recall 3 out of 3 objects.?Language:??Normal spontaneous speech, fluency, repetition,naming, comprehension, reading and writing.?Total Score:??30/30.? Neurological: Abnormal neurological findings:??none.?Mental Status:??alert and oriented X 3,?Normal attention, orientation, memory and affect.?Cranial Nerves:??Pupils are equal, round and reactive to light. Fundoscopy shows normal disc bilaterally. External occular muscles are intact. Visual razo are full, no ptosis. Face is symmetrical, no facial weakness or droop. Facial sensations are normal. Tongue protrudes in midline. Palate elevates symmetrically. Shoulder shrugging is normal..?Motor Examination:??Normal muscle tone, bulk and strength,?No atrophy or fasciculations,?No drift of the extended upper extremities,?Deep tendon reflexes are 2+?,?Plantars are flexor?.?Straight Leg Raising:??90 degrees.?Sensory Exam:??Normal light touch, temperature, pinprick, vibration and joint-position sensations?,?Rhomberg sign is absent.?Coordination:??no ataxia,?no titubation,?pjaeyr-rv-ugmv, bfyi-yebb-hprd test and rapid alternating movements were normal.?Gait Exam:??Within normal limits.?Cerebellar Signs:??Hptzxt-hq-pwfz and bbxk-tn-oklq is normal,?no dysdiadochokinesia?.?Extrapyramidal System:??No tremor, rigidity with normal facial expressions,?No bradykinesia, no bradyphrenia. Normal arm swing and posture. No propulsion or retropulsion.?Speech:??Normal,?no dysphasia or dysarthria..? General Examination: GENERAL APPEARANCE:??normal,?in no acute distress.?HEART:??S1, S2 normal,?no murmurs.?LUNGS:??clear anteriorly and posteriorly.?MUSCULOSKELETAL:??normal.?EXTREMITIES:??no edema.?PSYCH:??alert, oriented,?cognitive function intact,?cooperative with exam.? Assessment & Plan Assessment & Plan (1) Cervical radiculopathy: Comment: 07/01/24 NCV/EMG UE Normal motor and sensory nerve conduction velocities in the upper extremities. Normal EMG in the left C5-T1 innervated muscles.. Dec 02, 2923 MRI LS spine shows mild progression of lumbar herniation of Lumbar discs. 02/22/21 NCV/EM limbs : normal. 05/19/24 MRI C spine : multi level disc bulges and uncovertebral and facet arthropathy with bilater mild to moderate foraminal stenosis and severe left C6-7 foraminal stenosis.. No major canal stenosis Code(s): M54.12 - Radiculopathy, cervical region Category: Medical (2) Cervical disc disease: Code(s): M50.90 - Cervical disc disorder, unspecified, unspecified cervical region Category: Medical (3) Lumbar disc disease: Code(s): M51.9 - Unspecified thoracic, thoracolumbar and lumbosacral intervertebral disc disorder Category: Medical (4) Fibromyalgia: Code(s): M79.7 - Fibromyalgia Category: Medical (5) Dizziness: Code(s): R42 - Dizziness and giddiness Category: Medical Plan Continue current meds Coding Level of Care Code Est Pt Level 4 (56592) Diagnoses Cervical radiculopathy M54.12 Cervical disc disease M50.90 Lumbar disc disease M51.9 Fibromyalgia M79.7 Dizziness R42
--- OUTSIDE RECORDS SUMMARY | 2025-01-27 17:06 | XMS_ITS | Continuity of Care Document ---
Author Organization [facility] [address] [place] [address] Phone [phone] Care Team Providers Care Keyboard Action Assembler Name Role Phone HobsonDamon Lula CNP Care Team Informatio n Asbestos Handler [phone] Problems Active Problems Provider Date Osteoarthritis Chad [...] SIG Qnty Indications Ordering Provider Date Vitamin J882mto (1000 Ut) Capsules 1 by mouth every day Chad Dawkins M.D. 02/13/2022 Meclizine ZWR14dv Tablets Take twice daily as needed Emiliana Mcgill MD Losartan Cqjsndaxq74wm Tablets Take 1 Tablet By Mouth Twice A Day Clarence Guardado Bduywhuuww643jl Capsules Take 1 Capsules By Mouth in Am and 2 hs Halista, Norm M, Eeocqokzg518id Capsules Take One Capsule By Mouth Two Times A Day With Food Norm Kuhn, Zolpidem Hcbkjpda5zn Tablets Take half tablet at bedtime as needed Emiliana Mcgill MD Amlodipine Besylate2.5mg Tablets Take 1 tablet every evening Clarence Guardado Hxzklsnn443ka Tablets Take 1 Tablet By Mouth Every Day Claernce Guardado Mupirocin2% Ointment Apply Am And PM Around And Under Left Great Toenail Until Improved Maida Loomis PA Rosuvastatin Oxnlucv9ee Tablets Take 1 Tablet By Mouth Every Day Clarence Guardado Alendronate Yakbva20ch Tablets Please See Attached For Detailed Directions Norm Kuhn, Vital Signs Date Vital Result Comment 03/05/2024 3:49pm BP Systolic 120 mmHg BP Diastolic 60 mmHg Heart Rate 51 /min Height 64 inches 5'4 Weight 127.00 lb BMI (Body Mass Index) 21.8 kg/m2 Results Test Acquired Date Facility Test Result H/L Range Note Urinalysis, Complete 03/05/2024 [facility] [place] 1.014 1.005-1.030 pH 6.0 5.0-7.5 Urine-Color Yellow [...] MARIANNA Bolivar Plan of Treatment Future Appointment(s):* 05/14/2025 9:00 am - Lula Fofana PUNCH HAND at Main Office 03/05/2024 - MARIANNA Bolivar* E78.00 Pure hypercholesterolemia, unspecified * E83.52 Hypercalcemia * I10 Essential (primary) hypertension * M19.90 Osteoarthritis * K86.2 Cyst of pancreas * M81.0 Osteoporosis NOS * G47.00 Insomnia, unspecified Functional Status Description No Information Available Mental Status Description No Information Available Referrals Description No Information Available
--- OUTSIDE RECORDS SUMMARY | 2025-01-27 17:06 | XMS_ITS | Clinical Summary ---
Author Organization [facility] [employer] Travel Address [address] [place] [address] Phone Care Team Providers Care Airline Flight Attendant Name Role Phone Lula Fofana Primary Care Provid er Allergies Active Allergy Reactions Criticality Noted Date Comments Erythromycin Nausea And Vomiting 06/01/2020 Penicillins Rash 06/01/2020 Medications alendronate (FOSAMAX) 70 mg tablet Take 1 Tablet by mouth every 7 days. Active celecoxib (CeleBREX) 100 mg capsule Take 1 capsule (100 mg total) by mouth 2 (two) times a day. Active cholecalcifero l (VITAMIN D-3) 25 mcg (1,000 unit) tablet Take 1 tablet by mouth daily. Active gabapentin (NEURONTIN) 300 mg capsule 1 capsule in the am, 2 capsule at night Active meclizine (ANTIVERT) 25 mg tablet Take 1 Tablet by mouth as needed. Active zolpidem (AMBIEN) 5 mg tablet Take 1 tablet by mouth at bedtime. Active rosuvastatin (CRESTOR) 5 mg tablet TAKE 1 TABLET BY MOUTH 1 TIME EACH DAY. 90 tablet 1 5 Active atenoloL (TENORMIN) 100 mg tablet TAKE 1 TABLET BY MOUTH 1 TIME EACH DAY. 90 tablet 1 5 Active hydroCHLOROthi azide (MICROZIDE) 12.5 mg capsule TAKE 1 CAPSULE BY MOUTH 1 TIME EACH DAY IN THE MORNING. 90 capsule 1 5 Active losartan (COZAAR) 50 mg tablet TAKE 1 TABLET BY MOUTH TWICE A DAY 180 tablet 1 5 Active losartan (COZAAR) 50 mg tablet TAKE 1 TABLET BY MOUTH TWICE A DAY 180 tablet 1 5 01/27/20 25 Discontinued Active Problems Problem Noted Date Diagnosed Date Leg cramps 07/26/2023 Overview (01/06/2024): Last Assessment & Plan: Patient with complaints of leg cramps usually at night. Explained her it is most likely not vascular. Not ambulatory. Told her she could try using [id number] magnesium pills and she could also try [...] well- managed on her present dose of beta-inna. Patient denies any worsening palpitations or symptoms. [...] pain. Dyspnea 06/01/2020 02/18/2024 Palpitations 06/01/2020 02/18/2024 Medical History Medical History Date Comments GERD [...] 02/18/2024 2:29 PM EST Plan of Treatment Upcoming Encounters Date Type Department Care Team (Late st Contact Info) Description 02/25/2025 8:40 AM EST Office Visit [facility] [address] [place] [phone] Gisselle Moon NP [address] [place] [address] [address] [place] [phone] Health Maintenance Due Date Last Done Comments Breast Cancer Screening 1950 Colorectal Cancer Screening: Colonoscopy 1950 Pneumococcal Vaccine: 50+ Years (1 of 1 - PCV) 08/10/2001 Zoster Vaccines (1 of 2) 08/10/2001 Falls Risk Assessment 02/24/2022 Hepatitis C Screening 02/24/2022 Medicare Annual Wellness Visit 02/24/2022 Osteoporosis Screening (Bone Density Screening) 02/24/2022 Social Influencers of Health Screening 02/24/2022 Depression Screening 03/25/2024 COVID-19 Vaccine ( season) 2024 03/02/2021, 06/25/2020, 05/28/2020 Influenza Vaccine (#1) 2024 , 01/24/2021, 12/25/2019 Hypertension/CHF/CAD Annual BMP Blood Test 01/01/2026 01/01/2025, 10/13/2024, 09/24/2024, Additional history exists RSV Immunization Adult Patients (1 - 1-dose [...] 20 months Aged Out No longer eligible based on patient's age to complete this topic Varicella Vaccines Aged Out No longer eligible based on patient's age to complete this topic Procedures Procedure Name Priority Date/Time Associated Diagnosis Comments CBC WITH AUTO DIFFERENTIAL Routine 01/01/2025 12:28 PM EDT High risk medications (not anticoagulants) long-term use ALANINE AMINOTRANSFERASE Routine 025 12:28 PM EDT High risk medications (not anticoagulants) long-term use ASPARTATE AMINOTRANSFERASE Routine 01/01/2025 12:28 PM EDT High risk medications (not anticoagulants) long-term use CREATININE, SERUM Routine 01/01/2025 12: 28 PM EDT High risk medications (not anticoagulants) long-term use CBC AND DIFFERENTIAL Routine 01/01/2025 12:28 PM EDT High risk medications (not anticoagulants) long-term use LIPID PANEL WITH REFLEX TO DIRECT LDL Routine 03/11/2024 3:27 PM EST Hyperlipidemia from Last 3 Months or Most Recently Relevant to Health Maintenance Results * (ABNORMAL) CBC auto differential (01/01/2025 12:28 PM EDT) [facility] WBC 5.2 4.8 - 10.8 K/mcL LAB HEMETOLOGY METHOD 01/01/2025 1:56 PM EDT [facility] RBC 4.00 3.80 - 4.80 M/mcL LAB HEM[facility]OLOG[facility]25 [facility] Hemoglobin 12.6 11.5 - 16.0 g/dL LAB HEMETOLOGY METHOD 01/01/2025 1:56 PM EDT [facility] Hematocrit 39.0 35.0 - 47.0 % LAB HEMETOLOGY METHOD 01/01/2025 1:56 PM EDT [facility] MCV 97.3 79.0 - 98.0 FL LAB HEMETOLOGY METHOD 01/01/2025 1:56 [facility] MCH 31.4 27.0 - 32.0 pcg LAB HEMETOLOGY METHOD 01/01/2025 1:56 PM EDT [facility] MCHC 32.3 32.0 - 37.0 g/dL LAB HEMETOLOGY METHOD 01/01/2025 1:56 PM EDT [facility] RDW 11.8 11.0 - 15.0 % LAB HEMETOLOGY METHOD 01/01/2025 1:56 PM [facility] Platelets 160 130 - 400 K/mcL LAB HEMETOLOGY METHOD 01/01/2025 1:56 PM [facility] MPV 11.2(H) 7.0 - 11.0 FL LAB HEMETOLOGY METHOD 01/01/2025 1:56 PM [facility] NRBC 0.0 <1.0 % LAB HEMETOLOGY METHOD 01/01/2025 1:56 PM [facility] NRBC Absolute 0.00 <0.10 K/mcL LAB HEMETOLOGY METHOD 01/01/2025 1:56 PM [facility] Neutrophils Relative 62.8 % LAB HEMETOLOGY METHOD 01/01/2025 1:56 PM [facility] Lymphocytes Relative 23.4 % LAB HEMETOLOGY METHOD 01/01/2025 1:56 PM [facility] Monocytes Relative 11.6 % LAB HEMETOLOGY METHOD 01/01/2025 1:56 PM [facility] Eosinophils Relative 1.2 % LAB HEMETOLOGY METHOD 01/01/2025 1:56 PM [facility] Basophils Relative 0.6 % LAB HEMETOLOGY METHOD 01/01/2025 1:56 PM [facility] Immature Granulocytes Relative 0.4 % LAB HEMETOLOGY METHOD 01/01/2025 1:56 PM [facility] Neutrophils Absolute 3.26 1.50 - 7.00 K/mcL LAB HEMETOLOGY METHOD 01/01/2025 1:56 PM [facility] Lymphocytes Absolute 1.21 1.00 - 5.00 K/mcL LAB HEMETOLOGY METHOD 01/01/2025 1:56 PM [facility] Monocytes Absolute 0.60 0.20 - 1.00 K/mcL LAB HEMETOLOGY METHOD 01/01/2025 1:56 PM [facility] Eosinophils Absolute 0.06 0.00 - 0.50 K/mcL LAB HEMETOLOGY METHOD 01/01/2025 1:56 PM EDT [facility] Basophils Absolute 0.03 0.00 - 0.20 K/mcL LAB HEMETOLOGY METHOD 01/01/2025 1:56 PM EDT [facility] Immature Granulocytes Absolute 0.02 0.00 - 0.03 K/[facility] LAB HEMETOLOGY METHOD 01/01/2025 1:56 PM EDT [facility] Blood Venous blood specimen / Unknown Venipuncture / Unknown 01/01/2025 12:28 PM EDT 01/01/2025 1:44 PM EDT us Norm Kuhn MD LAB BLOOD ORDERABLES Final Resu lt Performing Organization Address [facility] de Phone Number [facility] [address] [place] [address], * Creatinine (01/01/2025 12:28 PM EDT) Creatinine 0.88 0.50 - 1.10 mg/dL LAB CHEMISTRY METHOD 01/01/2025 2:38 PM EDT [facility] eGFR 69 >=60 mL/min/1. 73m2 LAB CHEMISTRY METHOD 01/01/2025 2:38 PM EDT [facility] Comment:Calculation based on the Chronic Kidney Disease Epidemiology Collaboration (CKD-EPI) equation refit without adjustment for race. Blood Venous blood specimen / Unknown Venipuncture / Unknown 01/01/2025 12:28 PM EDT 01/01/2025 1:44 PM EDT us Norm Kuhn MD LAB BLOOD ORDERABLES Final Resu lt Performing Organization Address City/[facility]/ZIP Co de Phone Number [facility] [address] [place] [address], [place] [phone] * Alanine aminotransferase (01/01/2025 12:28 PM EDT) ALT (SGPT) 27 10 - 60 unit/L LAB CHEMISTRY METHOD 01/01/2025 2:38 PM EDT [facility] Blood Venous blood specimen / Unknown Venipuncture / Unknown 01/01/2025 12:28 PM EDT 01/01/2025 1:44 PM EDT Norm Kuhn MD LAB BLOOD ORDERABLES Final Resu lt Performing Organization Address City/[facility]/ZIP Co de Phone Number [facility] [address] [place] [address], [place] [phone] * Aspartate aminotransferase (01/01/2025 12:28 PM EDT) [facility] AST (SGOT) 21 10 - 42 unit/L LAB CHEMISTRY METHOD 01/01/2025 2:43 PM EDT [facility] Blood Venous blood specimen / Unknown Venipuncture / Unknown 01/01/2025 12:28 PM EDT 01/01/2025 1:44 PM EDT Norm Kuhn MD LAB BLOOD ORDERABLES Final Resu lt Performing Organization Address City/[facility]/ZIP Co de Phone Number [facility] [address] [place] [address], [place] [phone] * Lipid panel with reflex to direct LDL (03/11/2024 3:27 PM EST) [facility] Cholesterol 153 0 - 200 mg/dL LAB CHEMISTRY METHOD 03/11/2024 5:28 PM EST [facility] Triglycerides 43 0 - 150 mg/dL LAB CHEMISTRY METHOD 03/11/2024 5:28 PM EST [facility] HDL 98 >=40 mg/dL LAB CHEMISTRY METHOD 03/11/2024 5:28 PM EST [facility] Comment:Results verified by repeat testing LDL Calculated 46 0 - 100 mg/dL LAB CHEMISTRY METHOD 03/11/2024 5:28 PM EST [facility] VLDL Cholesterol Shaheen 8.6 mg/dL LAB CHEMISTRY METHOD 03/11/2024 5:28 PM EST [facility] Non HDL Chol. (LDL+VLDL) 55 <145 mg/dL LAB CHEMISTRY METHOD 03/11/2024 5:28 PM EST [facility] Chol/HDL Ratio 1.6 0.0 - 4.4 LAB CHEMISTRY METHOD 03/11/2024 5:28 PM EST [facility] Blood Venous blood specimen / Unknown Venipuncture / Unknown 03/11/2024 3:27 PM EST 03/11/2024 4:16 PM EST Gisselle Moon RESEARCH LAB ASSISTANT LAB BLOOD ORDERABLES Final R esult [facility] [address] [place] [address], from Last 3 Months or Most Recently Relevant to Health Maintenance Insurance MEDICARE [facility] Care Teams Airline Flight Attendant Relationship Specialty Start Date End Date Lula Fofana CRNP [address] [place] [address] [place] [phone] PCP - General Family Medicine 11/25/24
--- OUTSIDE RECORDS SUMMARY | 2025-01-27 17:06 | XMS_ITS | Patient Health Record ---
Author [facility] Address [address] [place] [address] Care Team Providers Care Superintendent Local Name Role Phone Mariza RICKETTS, Chad Primary Care Provider Kim West Unavailable [phone] Allergies Allergen (clinical drug ingredient) Drug/Non Drug Allergy documented on EMR Reaction Allergy Type Onset Date Status erythromycin Erythromycin stomach upset Drug Allergy Active Penicillin rash Drug Allergy Active Results Component Value Reference Range Notes X ray : Foot, left 3V Reviewed date:11/09/2024 07:57:57 PM Interpretation:See Examination above Performing Lab: Notes/Report: See Examination above X ray : Foot, right 3V Reviewed date:11/09/2024 07:57:46 PM Interpretation:See Examination above Performing Lab: Notes/Report: See Examination above Reason For Referral No Information Medications Medication SIG (Take, Route, Frequency, Duration) Notes Start Date End Date Status Meclizine HCl 25 MG as directed Orally PRN Active amLODIPine Besylate 2.5 MG 1 tablet Oral ly Once a day Not-Taking hydroCHLOROthiazide 12.5 MG 1 capsule in the morning Orally Once a day; Duration: 30 day(s) Active Celecoxib 100 MG 1 capsule with food Orally Twice a day Active Vitamin D 25 MCG (1000 UT) as directed Orally Active Alendronate Sodium 70 MG 1 tablet 30 min utes before the first food, beverage or medicine of the day with plain water Orally; Duration: 30 day(s) Not-Taking Atenolol 100 MG 1 tablet Orally Once a day Active Zolpidem Tartrate 5 MG 1 tablet at bedti me as needed Orally Once a day Active Rosuvastatin Calcium 5 MG 1 tablet Orall y Once a day Active Gabapentin 300 MG 1 cap AM, 2 caps PM Orally twice a day Active Losartan Potassium 50 MG 1 tablet Orally twice a day Active Immunizations Vaccine Route Administration Date Status Comme nts Influenza Unknown 11/09/2024 Refused Social History Tobacco Use: Social History Observation [...] Are you an other tobacco user? No AUDIT-C (Standard) Question Answer Notes Did you have a drink containing alcohol in the p ast year? No Points 0 Interpretation Negative Problems Problem Type SNOMED Code ICD Code Onset Dates Problem Status W/U Status Risk Notes Problem Acquired hammer toe of right foot (9179229333110408) Other hammer toe(s) (acquired), right foot (M20.41) Active confirmed Problem Neuropathy (301119446) Neuropathy (G62.9) Active confirmed Problem Espinal's neuroma of right foot (011989500561873) Espinal's neuroma of right foot (G57.61) Active confirmed Problem Espinal's neuroma of left foot (097693397238021) Espinal's neuroma of left foot (G57.62) Active confirmed Problem Localized, primary osteoarthritis of the ankle and/or foot (047670164) Arthritis of joint of lesser toe, right (M19.071) Active confirmed Vital Signs Blood pressure diastolic 75 mm Hg 11/09/2024 Height 5ft4in in 11/09/2024 Blood pressure systolic 125 mm Hg 11/09/2024 Weight 125 lbs 11/09/2024 BMI 21.45 kg/m2 11/09/2024 Encounters Encounter Location Date Provider Diagnosis [facility] [address] [place] [address] 11/09/2024 Kim Black Neuropathy G62.9 ; O ther hammer toe(s) (acquired), right foot M20.41 ; Arthritis of joint of lesser toe, right M19.071 ; Pain in right toe(s) M79.674 ; Subluxation of metatarsophalangeal joint of toe, initial encounter S93.149A ; Neuritis M79.2 ; Pain in left foot M79.672 ; Pain in right foot M79.671 ; Lesion of digital nerve G58.8 ; Espinal's neuroma of right foot G57.61 and Espinal's neuroma of left foot G57.62 Assessments Encounter Date Diagnosis (ICD Code) Assessment Notes Treatment Notes Treatment Clinical Notes Section Notes 11/09/2024 Neuropathy (ICD-10 - G62.9) 11/09/2024 Other hammer toe(s) (acquired), right foot (ICD-10 - M20.41) 11/09/2024 Arthritis of joint o f lesser toe, right (ICD-10 - M19.071) 11/09/2024 Subluxation of metatarsophalangeal joint of toe, initial encounter (ICD-10 - S93.149A) 11/09/2024 Pain in right toe(s) (ICD-10 - M79.674) 11/09/2024 Neuritis (ICD-10 - M79.2) 11/09/2024 Pain in left foot (ICD-10 - M79.672) 11/09/2024 Pain in right foot (ICD-10 - M79.671) 11/09/2024 Lesion of digital ne rve (ICD-10 - G58.8) 11/09/2024 Espinal's neuroma of right foot (ICD-10 - G57.61) 11/09/2024 Espinal's neuroma of left foot (ICD-10 - G57.62) Plan Of Treatment Next Appt Details Provider Name:Kim A Palomo , 01/28/2025 02:45:00 PM, [address] [facility], [place], [address], Insurance Providers Payer Name Payer Address Payer Phone Subscriber Number Group Number Insured Name Patient Relationship to Insured Coverage Start Date Coverage End Date Medicare National [employer] [address] [place] [address] [id number] Yessi Morin Self - patient is the insured [employer] [facility] [address] [place], [place] [address] [id number] Yessi Morin Self - patient is the insured Medical (General) History Medical History History ICD Code Arthritis Back,Hip,and Knee pain High blood pressure Measles Mumps Chicken pox Numbness Osteoporosis Sciatica Surgical History Surgery Date(Month/Year) laminectomy, left partial , resection le ft synovial cyst cholecystectomy 07/2013 appendectomy 09/16/2011 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
--- OUTSIDE RECORDS SUMMARY | 2025-01-27 17:06 | XMS_ITS | Continuity of Care Document ---
Author Organization [place] - [facility], [facility] Address [address] [place] [address] Care Team Providers Care Shank Faker Name Role Phone JULIUS GONZALEZ Primary Care Provider Assessment Encounter Date Assessment Date Assessment LastModified by Organization Details LastModified Time 01/22/2025 01/22/2025 74-year-old female presents for cerumen removal. Cerumen removed bilaterally. Follow-up in 6 months. nanette Not available 01/22/2025 09:22:06 Plan of Treatment Reminders Order Date Submit Date Provider Last Modified By Organization Details Last Modified Time Details Appointments Establish ed 15 2025 09:00A M MARIJA EISENBERG PA-C Not available Not available Not available Lab None recorded. Referral None recorded. Procedures None recorded. Surgeries None recorded. Imaging None recorded. Medication Orders None recorded. Patient TargetsNo targets recorded. Patient InstructionsNo instructions recorded. Reason for Referral None Reported. Problems Name Problem SNOMED Code Status Onset Date Resolution Date Notes Provider Name and Address Organization Details Recorded Time Nasal congestio n 95593183 Active 2015 Nasal congestio n; Note: Date Diagnosed : 10/07/2015 11:01 AM (R09.81) Not Available [facility] 4 03:06:18 Tinnitus of left ear 64524453652 06 Active 2015 Tinnitus, left ear; Note: Date Diagnosed : 10/07/2015 11:01 AM (H93.12) Not Available [facility] 4 03:06:16 Impacted cerumen of bilateral ears 80592692270 77178 Active 2016 Impacted cerumen, bilateral ; Note: Date Diagnosed : 08/30/2016 10:56 AM (H61.23) Not Available On license of [facility] 4 03:06:17 Generaliz ed enlarged lymph nodes 184143568 Active 2018 Lymphaden opathy NOS; Note: Date Diagnosed : 08/25/2018 1:33 PM (R59.1) Not Available On license of [facility] 4 03:06:16 Bilateral tinnitus 43462087400 02 Active 2018 Tinnitus, bilateral ; Note: Date Diagnosed : 08/25/2018 11:56 AM (H93.13) Not Available On license of [facility] 4 03:06:18 Abnormal auditory perceptio n 89522639 Active 2018 Other abnormal auditory perceptio ns, right ear; Note: Date Diagnosed : 08/25/2018 11:56 AM (H93.291) Not Available On license of [facility] 4 03:06:16 Otalgia of right ear 4373354743 Active 2018 Otalgia, right ear; Note: Date Diagnosed : 10/28/2018 12:54 PM (H92.01) Not Available On license of [facility] 4 03:06:17 Chronic rhinitis 93126061 Active 2018 Rhinitis (chronic) NOS; Note: Date Diagnosed : 10/28/2018 12:54 PM (J31.0) Not Available On license of [facility] 4 03:06:17 Neck pain 93789159 Active 2018 Cervicalg ia; Note: Date Diagnosed : 10/28/2018 1:03 PM (M54.2) Not Available On license of [facility] 4 03:06:18 Pain of right temporoma ndibular joint 08375863456 256933 Active 2019 Arthralgi a of right temporoma ndibular joint; Note: Date Diagnosed : 04/30/2019 3:10 PM (M26.621) Not Available On license of [facility] 4 03:06:17 Impacted cerumen in left ear 31042669360 90632 Active 2022 Impacted cerumen, left ear; Note: Date Diagnosed : 10/19/2022 1:28 PM (H61.22) Impacte d cerumen, left ear; Note: Date Diagnosed : 10/07/2015 10:53 AM (H61.22) ; Start Date : 6 Not Available On license of [facility] 4 03:06:18 Problem Notes None recorded. Procedures Surgical History Date Name Laterality Status Provider Name and Address Organization Details Recorded Time 5 Cerumen removal without microscope bilat completed MARIJA EISENBERG PA-C [address] [facility],[address], [address], [facility] 01/22/2025 09:21:52 5 Cerumen removal without microscope bilat completed MARIJA EISENBERG PA-C [address] [facility],[place] [address], [place], [address], [facility] 05/19/2024 10:08:18 4 Cerumen removal without microscope bilat completed MAYRA FORTUNE PA-C [address] [facility],[place] [address], [place], [address], [facility] 11/20/2023 10:19:41 Imaging Results None recorded. Procedure Notes None recorded. Medical Equipment None Reported. Allergies Allergen ID Allergen Name Allergen Category Reaction Reaction Severity Criticality Documentation Date Start Date Code Code System Note Provider Name and Address Organization Details Recorded Time 062060 penicilli n V potassium medicatio n other Not available Not available 08/06/2023 83617 5 RxNorm React ion: unkno wn, unspe cifie d;; Not Available On license of [facility] 4 01:25:37 083409 erythromy rodrick ethylsucc inate medicatio n other Not available Not available 08/06/2023 4056 RxNorm React ion: unkno wn, unspe cifie d;; Not Available On license of [facility] 4 01:25:37 Medications Name Sig Start Date Stop Date Status Note LastModified by Organization Details LastModified Time losartan 50 mg tablet TAKE 1 TABLET BY MOUTH TWICE A DAY active Not Available Not Available No t Available celecoxib 200 mg capsule 01/20 completed Medicati on ID: [id number] D uration Value: 90 Brand Name: celecoxi b Send Method: E-Prescr ibed Sub s Allowed: subs OK Medic ation[facility] ericName : celecoxi b Not Available Not Available Not Available Colace 100 mg capsule 01/20 completed Medicati on ID: [id number] B rand Name: Colamy S end Method: E-Prescr ibed Sub s Allowed: subs OK [facility] Colace Not Available Not Available [...] mg tablet TAKE 1 TABLET BY MOUTH EVERY 12 HOURS NEEDED active Not Available Not Available No t Available doxycycli ne monohydra te 100 mg capsule TAKE 1 CAPSULE BY MOUTH TWICE A DAY FOR 7 DAYS active Not Available Not Available No t Available hydrochlo rothiazid e 12.5 mg capsule TAKE 1 CAPSULE BY MOUTH 1 TIME EACH DAY IN THE MORNING. active Not Available Not Available No t Available gabapenti n 300 mg capsule TAKE 1 CAPSULE BY MOUTH ONCE A DAY & TAKE 2 CAPSULES AT BEDTIME active Not Available Not Available No t Available mupirocin 2 % topical ointment APPLY TO CALLUS IN MORNING & EVENING RIGHT GREAT TOE LATERAL ASPECT & RIGHT SECOND TOE MEDIAL ASPECT active Not Available Not Available No t Available zolpidem 5 mg tablet TAKE 1 TABLET BY MOUTH EVERYDAY AT BEDTIME active Not Available Not Available No t Available methylpre dnisolone 4 mg tablets in a dose pack active Medicati on ID: [id number] B rand Name: methylpr ednisolo ne Send Method: E-Prescr ibed Sub s Allowed: subs OK Medic Ladonna ericName : methylpr ednisolo ne Not Available Not Available Not Available celecoxib 100 mg capsule TAKE ONE CAPSULE BY MOUTH TWICE A DAY WITH FOOD active Not Available Not Available No t Available magnesium 30 mg tablet 01/20 completed Medicati on ID: [id number] B rand Name: magnkristynu m Send Method: E-Prescr ibed Sub s Allowed: subs OK Medic ationGen ericName : magnkristynu m Not Available Not Available Not Available rosuvasta tin 5 mg tablet TAKE 1 TABLET BY MOUTH 1 TIME EACH DAY. active Not Available Not Available No t Available rosuvasta tin 10 mg tablet active Medicati on ID: [id number] B rand Name: rosuvast atin Sen d Method: E-Prescr ibed Sub s Allowed: subs OK Medic ationGen ericName : rosuvast atin Not Available Not Available Not Available omeprazol e magnesium 20 mg capsule,d elayed release 01/20 completed Medicati on ID: [id number] B rand Name: omeprazo le magnesiu m Send Method: E-Prescr ibed Sub s Allowed: subs OK Medic ationGen ericName : omeprazo le pacou m Not Available Not Available Not Available [facility] 180 mg tablet Take 1 tablet by mouth once a day 01/20 completed Medicati on ID: [id number] D uration Value: 30 Brand Name: [facility] Send Method: E-Prescr ibed Sub s Allowed: subs OK Medic ation[facility] ericName : [facility] Not Available Not Available Not Available Flonase Allergy Relief 50 mcg/actua tion nasal spray,ryan pension 2 puff into both nostrils once a day 01/20 completed Medicati on ID: [id number] D uration Value: 120 Brand Name: Flonase Allergy Relief S end Method: E-Prescr ibed Sub s Allowed: subs OK Medic ationGen ericName : Flonase Allergy Relief Not Available Not Available Not Available Probiotic (B. coagulans ) 10 billion cell capsule,d elayed release 01/20 completed Medicati on ID: [id number] B rand Name: Probioti c (B. coagulan s) Send Method: E-Prescr ibed Sub s Allowed: subs OK Medic ationGen ericName : Probioti c (B. coagulan s) Not Available Not Available Not Available Vitals Date Recorded Body height Body mass index (BMI) Body weight Provider Name and Address Organization Details Last Updated DateTime 01/22/2025 162.56 cm 21.1 kg/m2 64262.86 g Lucina Farooq [place] - [facility] 01/22/2025 09:07:20 Social History None recorded. Functional Status None recorded. Mental Status None recorded. Family History Nothing Reported. Medical History No medical history recorded. Gynecological HistoryNo gynecological history recorded. Obstetrics History GPAL:G 0 P 0 0 0 0 Past Encounters Encounter ID Performer Location Encounter Start Date Encounter Closed Date Diagnosis/Indication Diagnosis SNOMED-CT Code Diagnosis ICD10 Code Diagnosis IMO Codes Diagnosis Note [id number] MARIJA EISENBERG PA-C [facility] [address] [place] [address] 01/22/2025 08:54:19 01/22/2025 09:22:56 Impacted cerumen of bilateral ears 7555352343 471785 H61.23 Health Concerns Section Related Observation LastModified by Organization Detai ls LastModified Time None Recorded Concern Status LastModified by Organization Details LastModified Time None Recorded Payers Encounter Date Sequence Insurance Name Policy Number Policy Aguirre Covered Member ID Aguirre Member ID Guarantor Name 01/22/2025 1 [place] [employer] Yessi Morin [id number] Yessi Morin 01/22/2025 2 [place] [id number] Yessi Morin [id number] Yessi Morin Notes Date Note Type Note Provider Name and Address Organization Details Recorded Time 01/22/2025 text/html ROS as noted in the HPI 74-year-old female presents for cerumen removal. No acute issues since her last visit. MARIJA EISENBERG PA-C [address] [place] [address], [phone], [facility] - [facility] 01/22/2025 09:22:26 OBGyn Episode No OBEpisode recorded.
== END 2025-01-27 14:31 | disposition home or self-care (01) ==
LOC: HO.HSM 13:55
PROVIDERS: PCP Family Medicine; Referring Provider Internal Medicine Endocrinology, Diabetes & Metabolism; Visit Provider Psychiatry & Neurology Neurology
DX: M54.12 Radiculopathy, cervical region (principal); M50.90 Cervical disc disorder, unspecified, unspecified cervical region; M51.9 Unspecified thoracic, thoracolumbar and lumbosacral intervertebral disc disorder; M79.7 Fibromyalgia; R42 Dizziness and giddiness
CPT/HCPCS: 99214

== ENCOUNTER → 2025-01-27 13:55 | Outpatient (BNVA) | payer MEDICARE, SELFPAY | PROVIDERS: PCP Family Medicine; Referring Provider Internal Medicine Endocrinology, Diabetes & Metabolism; Visit Provider Psychiatry & Neurology Neurology | DX: M54.12 Radiculopathy, cervical region (principal); M50.90 Cervical disc disorder, unspecified, unspecified cervical region; M51.9 Unspecified thoracic, thoracolumbar and lumbosacral intervertebral disc disorder; M79.7 Fibromyalgia; R42 Dizziness and giddiness; I10 Essential (primary) hypertension; E78.5 Hyperlipidemia, unspecified | CPT/HCPCS: 99212 ==